=== PATIENT | female | born 1965 | race Caucasian/White ===

== ENCOUNTER 2018-03-16 12:57 | Emergency (ER) | payer OTHER ==
[2018-03-16] MEDS ORDERED: ASPIRIN 81 MG CHEWABLE TABLET ONE (13:50)
[2018-03-16] MEDS ORDERED: ONDANSETRON 4 MG/2 ML VIAL ONE (13:50)
[2018-03-16] MEDS ORDERED: NA CHLORIDE 0.9% 1,000 ML ONE (13:50)
[2018-03-16] MEDS ORDERED: FENTANYL CITR 100 MCG/2 ML ONE (13:50)
--- NOTE | 2018-03-16 13:50 | RAD REPORT ---
EXAM DESCRIPTION: RAD - Chest Single View - 03/16/2018 1:45 pm CLINICAL HISTORY: CHEST PAIN Chest pain. COMPARISON: Chest Single View dated 01/24/2017; Chest Single View dated 01/13/2017; Chest Single View dated 12/18/2016; Chest Single View dated 04/18/2016 FINDINGS: Portable technique limits examination quality. The lungs are emphysematous but grossly clear. The heart is normal in size. No displaced fractures. IMPRESSION: No acute intrathoracic process suspected. Mild COPD.
--- NOTE | 2018-03-16 13:50 | RAD REPORT ---
EXAM DESCRIPTION: RAD - Hand Right 3 View - 03/16/2018 1:45 pm CLINICAL HISTORY: PAIN COMPARISON: No comparisons FINDINGS: Mildly impacted fracture involves the right fourth metacarpal neck. No dislocation evident .
[2018-03-16 14:17] LABS: Absolute Lymphocytes (CBC) 2.4 K/uL (0.7-4.9); Absolute Monocytes 1.3 K/uL (0.1-1.3); Absolute Neutrophil 13.8 K/uL (1.8-8.0); Basophils % 0.5 % (0-1.3); Eosinophils % 0.1 % (0-4.4); Lymphocytes % 13.4 % (15.3-44.8); MPV 10.1 fL (7.6-11.3); Monocytes % 7.3 % (3.3-12.3); RBC Red Blood Cell Count 5.45 M/uL (3.86-4.86)
[2018-03-16 14:19] LABS: Protime INR 1.09
[2018-03-16 14:38] LABS: ALT/SGPT 26 U/L (12-78); AST/SGOT 28 U/L (15-37); Albumin 4.1 g/dL (3.4-5.0); Alkaline Phosphatase 79 U/L (45-117); BUN Blood Urea Nitrogen 21 mg/dL (7-18); Bicarbonate 28 mmol/L (21-32); Bilirubin Direct 0.4 mg/dL (0-0.2); Bilirubin Total 1.4 mg/dL (0.2-1.0); Glucose Level 88 mg/dL (74-106); Lipase 85 U/L (73-393); Magnesium 2.6 mg/dL (1.8-2.4); NT PRO-BNP 252 pg/mL (<125); Potassium 3.2 mmol/L (3.5-5.1); Protein, Total 8.7 g/dL (6.4-8.2); Sodium Level 132 mmol/L (136-145); Troponin (Emerg Dept Use Only) < 0.02 ng/mL (0.0-0.045)
--- NOTE | 2018-03-16 14:49 | EKG ---
Test Date: 2018-03-16 Test Time: 13:06:03 Clinical Quality Assurance Associate: TISHA/Tori MEASUREMENT RESULTS: Intervals: Rate: 89 NH: 126 QRSD: 82 QT: 356 QTc: 433 [place]: P: 69 NH: 126 QRS: 11 T: 31 INTERPRETIVE STATEMENTS: Normal sinus rhythm with sinus arrhythmia Normal ECG Compared to ECG 01/24/2017 13:07:35 No significant changes Electronically Signed On 03-16-18 14:48:17 RECORD PRESSMAN by Abrahan Brunson
--- NOTE | 2018-03-16 15:21 | RAD REPORT ---
EXAM DESCRIPTION: CT - Head C Spine Matt Cordero - 03/16/2018 2:59 pm CLINICAL HISTORY: Head and neck injury with chest and abdominal pain status post fall. Syncope. . He ad and neck pain . TECHNIQUE: Computed axial tomography of the head and cervical spine was obtained Computed axial tomography of the chest, abdomen and pelvis was obtained. 100 cc Isovue-300 was given intravenously coronal and sagittal reconstruction was performed. All CT scans are performed using dose optimization technique as appropriate and may include automated exposure control or mA/KV adjustment according to patient size. COMPARISON: 2017 FINDINGS: An intracranial bleed is not seen. The ventricles are normal in caliber. An extra-axial fl uid collection is not noted. Chronic sinusitis A cervical fracture is not seen. No dislocation is seen. Spondylosis involves the cervical spine A mediastinal hematoma is not noted. A pleural effusion is not present. A lung contusion is not seen. The liver, spleen, pancreas, adrenals, kidneys and bladder do not demonstrate a traumatic injury. Mild gallbladder distention IMPRESSION: 1. No acute intracranial abnormality is seen 2. A cervical fracture is not visualized. If the patient continues have symptoms to suggest intracran ial/spinal cord pathology then MRI would be recommended. 3. No traumatic injury involving the chest, abdomen or pelvis is seen.
[2018-03-16] MEDS ORDERED: MAGNE/ALUM HYDROXD 30 ML UCUP ONE (16:17)
[2018-03-16] MEDS ORDERED: LIDOCAINE VISCOUS 2% SOLN 15 ML UDC ONE (16:17)
--- NOTE | 2018-03-16 16:18 | EDPHYS ---
Physician Documentation [facility] Name: Teagan Bailey Age: 52 yrs Sex: Female : 1965 Arrival Date: 03/16/2018 Time: 13:04 Bed 13 Private MD: ED Physician Abhay Soto HPI: 03/16 13:28 This 52 yrs old Female presents to ER via EMS with complaints of Chest Pain. lillie 13:28 The patient or guardian reports chest pain that is located primarily in the anterior lillie chest wall, left. Onset: 2 day(s) ago. The pain does not radiate. Associated signs and symptoms: The patient has no apparent associated signs or symptoms. The chest pain is described as sharp. Severity of pain: At its worst the pain was moderate in the emergency department the pain is unchanged. 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 - Social history:: Smoking status: Patient uses tobacco products, smokes one pack cigarettes per day. Patient/guardian denies using alcohol, street drugs. - Ebola Screening: : No symptoms or risks identified at this time. ROS: 13:29 Constitutional: Negative for fever, chills, and weight loss, Eyes: Negative for injury, lillie pain, redness, and discharge, ENT: Negative for injury, pain, and discharge, Neck: Negative for injury, pain, and swelling, Respiratory: Negative for shortness of breath, cough, wheezing, and pleuritic chest pain, Abdomen/GI: Negative for abdominal pain, nausea, vomiting, diarrhea, and constipation, Back: Negative for injury and pain, : Negative for injury, bleeding, discharge, and swelling, Skin: Negative for injury, rash, and discoloration, Neuro: Negative for headache, weakness, numbness, tingling, and seizure, Psych: Negative for depression, anxiety, suicide ideation, homicidal ideation, and hallucinations, Allergy/Immunology: Negative for hives, rash, and allergies, Endocrine: Negative for neck swelling, polydipsia, polyuria, polyphagia, and marked weight changes, Hematologic/Lymphatic: Negative for swollen nodes, abnormal bleeding, and unusual bruising. 13:29 Cardiovascular: Positive for chest pain, of the left clavicle and anterior aspect of left upper chest. Exam: 13:29 Constitutional: This is a well developed, well nourished patient who is awake, alert, lillie and in no acute distress. Head/Face: Normocephalic, atraumatic. Eyes: Pupils equal round and reactive to light, extra-ocular motions intact. Lids and lashes normal. Conjunctiva and sclera are non-icteric and not injected. Cornea within normal limits. Periorbital areas with no swelling, redness, or edema. ENT: Nares patent. No nasal discharge, no septal abnormalities noted. Tympanic membranes are normal and external auditory canals are clear. Oropharynx with no redness, swelling, or masses, exudates, or evidence of obstruction, uvula midline. Mucous membranes moist. Neck: Trachea midline, no thyromegaly or masses palpated, and no cervical lymphadenopathy. Supple, full range of motion without nuchal rigidity, or vertebral point tenderness. No Meningismus. Cardiovascular: Regular rate and rhythm with a normal S1 and S2. No gallops, murmurs, or rubs. Normal PMI, no JVD. No pulse deficits. Respiratory: Lungs have equal breath sounds bilaterally, clear to auscultation and percussion. No rales, rhonchi or wheezes noted. No increased work of breathing, no retractions or nasal flaring. Abdomen/GI: Soft, non-tender, with normal bowel sounds. No distension or tympany. No guarding or rebound. No evidence of tenderness throughout. Back: No spinal tenderness. No costovertebral tenderness. Full range of motion. Skin: Warm, dry with normal turgor. Normal color with no rashes, no lesions, and no evidence of cellulitis. Neuro: Awake and alert, GCS 15, oriented to person, place, time, and situation. Cranial nerves II-XII grossly intact. Motor strength 5/5 in all extremities. Sensory grossly intact. Cerebellar exam normal. Normal gait. Psych: Awake, alert, with orientation to person, place and time. Behavior, mood, and affect are within normal limits. 13:29 Chest/axilla: Inspection: no acute changes, Palpation: tenderness, that is mild, that is moderate, of the left clavicle, anterior aspect of left upper chest and left breast. 13:29 Musculoskeletal/extremity: Extremities: noted in the right hand: contusion, decreased ROM, pain, swelling, tenderness, ROM: intact in all extremities, full active range of motion, full passive range of motion, Circulation is intact in all extremities. Sensation intact. Compartment Syndrome exam of affected extremity: is normal. Tendon exam: DVT Exam: No signs of deep vein thrombosis. no pain, no swelling, no tenderness, negative Homans' sign noted on exam, no appreciated bluish discoloration, no erythema, no increased warmth. Vital Signs: 13:09 BP 134 / 105; Pulse 101; Resp 22; Temp 98.2(O); Pulse Ox 98% on R/A; ph 14:00 BP 119 / 86; Pulse 80; Resp 18; Temp 97.9; Pulse Ox 98% on R/A; mh5 16:05 BP 108 / 79; Pulse 87; Resp 18; Temp 97.8(O); Pulse Ox 97% on R/A; mh5 MDM: 13:10 Patient medically screened. [facility] 13:33 Data reviewed: vital signs, nurses notes, lab test result(s), EKG, radiologic studies, [facility] CT scan, plain films. 03/16 13:11 Order name: Basic Metabolic Panel; Complete Time: 16:09 [facility] 03/16 13:11 Order name: CBC with Diff; Complete Time: 14:35 [facility] 03/16 13:11 Order name: LFT's; Complete Time: 16:09 [facility] 03/16 13:11 Order name: Magnesium; Complete Time: 16:09 [facility] 03/16 13:11 Order name: NT PRO-BNP; Complete Time: 16:09 [facility] 03/16 13:11 Order name: PT-INR; Complete Time: 14:35 [facility] 03/16 13:11 Order name: Troponin (emerg Dept Use Only); Complete Time: 16:09 [facility] 03/16 13:11 Order name: XRAY Chest (1 view); Complete Time: 14:35 [facility] 03/16 13:11 Order name: Lipase; Complete Time: 16:09 [facility] 03/16 13:28 Order name: CT Traumagram (Head C Spine CAP W Con); Complete Time: 16:09 [facility] 03/16 13:28 Order name: Urine Culture [facility] 03/16 13:32 Order name: Hand Right 3 View XRAY; Complete Time: 14:35 [facility] 03/16 16:20 Order name: Urine Dipstick--Ancillary (enter results) 03/16 13:11 Order name: EKG; Complete Time: 13:12 [facility] 03/16 13:11 Order name: Cardiac monitoring; Complete Time: 13:15 [facility] 03/16 13:11 Order name: EKG - Nurse/Tech; Complete Time: 13:15 [facility] 03/16 13:11 Order name: IV Saline Lock; Complete Time: 14:28 [facility] 03/16 13:11 Order name: Labs collected and sent; Complete Time: 14:28 [facility] 03/16 13:11 Order name: O2 Per Protocol; Complete Time: 13:15 [facility] 03/16 13:11 Order name: O2 Sat Monitoring; Complete Time: 13:16 [facility] 03/16 13:28 Order name: Urine Dipstick-Ancillary (obtain specimen); Complete Time: 16:15 [facility] 03/16 14:36 Order name: Ulnar Gutter splint: right; Complete Time: 15:46 [facility] 03/16 16:11 Order name: PO challenge: juice; Complete Time: 16:15 [facility] Administered Medications: 14:00 Drug: Aspirin 162 mg Route: PO; ph 16:27 Follow up: Response: No adverse reaction ph 14:05 Drug: NS 0.9% 1000 ml Route: IV; Rate: 125 ml/hr; Site: right antecubital; ph 16:26 Follow up: Response: No adverse reaction; IV Status: Completed infusion ph 14:05 Drug: fentaNYL (PF) 50 mcg Route: IVP; Site: right antecubital; ph 16:27 Follow up: Response: No adverse reaction; Pain is decreased ph 14:05 Drug: Zofran 4 mg Route: IVP; Site: right antecubital; ph 16:27 Follow up: Response: No adverse reaction; Nausea is decreased ph 16:15 Drug: GI Cocktail without - (Maalox Suspension 30 ml, Lidocaine Liquid 2 % 15 ph ml) Route: PO; 16:28 Follow up: Response: No adverse reaction; Pain is decreased ph 16:45 Drug: Potassium Effervescent Tablet 25 mEq Route: PO; ph 16:51 Follow up: Response: No adverse reaction ph 16:45 Drug: Augmentin 875 mg Route: PO; ph 16:51 Follow up: Response: No adverse reaction ph Disposition: 03/16/18 16:18 Discharged to Home. Impression: Vomiting, Other chest pain - wall, Nondisplaced fracture of neck of fourth metacarpal bone, right hand, Elevated white blood cell count, Acute pharyngitis, Tobacco abuse counseling, Tobacco use, Hypokalemia. - Condition is Fair. - Discharge Instructions: Potassium Content of Foods, Nausea and Vomiting, Adult, Pharyngitis, Steps to Quit Smoking, Smoking Hazards, Nausea and Vomiting, Adult, [id number], Pharyngitis, [id number]-dh-[id number], Steps to Quit Smoking, [id number], Aspirin and Your Heart, Sore Throat, [id number]-[id number], Hypokalemia. - Prescriptions for Augmentin 875- 125 mg Oral Tablet - take 1 tablet by ORAL route every 12 hours for 10 days; 20 tablet. Tylenol- Codeine #3 300-30 mg Oral Tablet - take 2 tablets by ORAL route every 6 hours As needed; 20 tablet. Zofran 4 mg Oral Tablet - take 1 tablet by ORAL route every 12 hours As needed; 14 tablet. - Medication Reconciliation Form, Thank You Letter, Antibiotic Education, Prescription Opioid Use form. - Follow up: Private Physician; When: 2 - 3 days; Reason: Recheck today's complaints, Continuance of care, Re-evaluation by your physician. Follow up: Eriberto Goff MD; When: 2 - 3 days; Reason: Recheck today's complaints, Continuance of care, Re-evaluation by your physician. - Problem is new. - Symptoms have improved. Signatures: Dispatcher [employer] EDAZ Abhay Soto MD MD cha Hall, Patricia RN RN ph Corrections: (The following items were deleted from the chart) 16:53 16:18 03/16/2018 16:18 Discharged to Home. Impression: Vomiting; Other chest pain - ph wall; Nondisplaced fracture of neck of fourth metacarpal bone, right hand; Elevated white blood cell count; Acute pharyngitis; Tobacco abuse counseling; Tobacco use; Hypokalemia. Condition is Fair. Forms are Medication Reconciliation Form, Thank You Letter, Antibiotic Education, Prescription Opioid Use. Follow up: Private Physician; When: 2 - 3 days; Reason: Recheck today's complaints, Continuance of care, Re-evaluation by your physician. Follow up: Eriberto Goff; When: 2 - 3 days; Reason: Recheck today's complaints, Continuance of care, Re-evaluation by your physician. Problem is new. Symptoms have improved. lillie
--- NOTE | 2018-03-16 16:18 | ER ---
Nurse's Notes [facility] Name: Teagan Bailey Age: 52 yrs Sex: Female : 1965 Arrival Date: 03/16/2018 Time: 13:04 Bed 13 Private MD: Diagnosis: Vomiting;Other chest pain-wall;Nondisplaced fracture of neck of fourth metacarpal bone, right hand;Elevated white blood cell count;Acute pharyngitis;Tobacco abuse counseling;Tobacco use;Hypokalemia Presentation: 03/16 13:05 Presenting complaint: EMS states: C/O left-sided chest pain x 45 min, describes as ph sharp and stabbing, pain is reproducible upon palpation and w/ movement of L arm, [address] depression, pt reports vomiting x 3 days, also reports having syncopal episode in shower yesterday. Transition of care: patient was not received from another setting of care. Onset of symptoms was March 16, 2018. Risk Assessment: Do you want to hurt yourself or someone else? Patient reports no desire to harm self or others. Initial Sepsis Screen: Does the patient meet any 2 criteria? No. Patient's initial sepsis screen is negative. Does the patient have a suspected source of infection? No. Patient's initial sepsis screen is negative. Care prior to arrival: IV initiated. 22 GA, in the right hand. 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 - Social history:: Smoking status: Patient uses tobacco products, smokes one pack cigarettes per day. Patient/guardian denies using alcohol, street drugs. - Ebola Screening: : No symptoms or risks identified at this time. Screenin:12 Abuse screen: Denies threats or abuse. Denies injuries from another. Nutritional ph screening: No deficits noted. Tuberculosis screening: No symptoms or risk factors identified. Fall Risk Fall in past 12 months (25 points). No secondary diagnosis (0 pts). IV access (20 points). Ambulatory Aid- None/Bed Rest/Nurse Assist (0 pts). Gait- Weak (10 pts.). Mental Status- Oriented to own ability (0 pts). Total Ron Fall Scale indicates High Risk Score (45 or more points). Fall prevention measures have been instituted. Side Rails Up X 2 Frequent Obs/Assessments Occuring As available patient and family educated on Fall Prevention Program and Strategies. Assessment: 13:10 General: Appears in no apparent distress. uncomfortable, Behavior is cooperative, ph anxious, Denies fever. Pain: Complains of pain in right hand and anterior aspect of left upper chest Pain does not radiate. Pain began 1 hour ago. Aggravated by increased activity, repositioning. Neuro: Level of Consciousness is awake, alert, obeys commands, Oriented to person, place, time, situation. Cardiovascular: Reports chest pain, nausea, syncope, vomiting, Denies shortness of breath, Capillary refill < 3 seconds in bilateral fingers Patient's skin is warm and dry. Rhythm is sinus rhythm. Respiratory: Airway is patent Respiratory effort is even, unlabored, Respiratory pattern is regular, symmetrical, Breath sounds are clear bilaterally. GI: Reports nausea, vomiting, Patient currently denies abdominal pain, diarrhea. EENT: Reports pain when swallowing. Derm: Skin is intact, is healthy with good turgor, Skin is. Musculoskeletal: Circulation, motion, and sensation intact. Range of motion: limited in all extremities, Swelling present in right hand. 14:30 Reassessment: Patient appears in no apparent distress at this time. Patient and/or ph family updated on plan of care and expected duration. Pain level reassessed. Patient is alert, oriented x 3, equal unlabored respirations, skin warm/dry/pink. 15:30 Reassessment: Patient appears in no apparent distress at this time. Patient and/or ph family updated on plan of care and expected duration. Pain level reassessed. Patient is alert, oriented x 3, equal unlabored respirations, skin warm/dry/pink. Pt c/o pain when swallowing, ERP notified, see MAR. Vital Signs: 13:09 BP 134 / 105; Pulse 101; Resp 22; Temp 98.2(O); Pulse Ox 98% on R/A; ph 14:00 BP 119 / 86; Pulse 80; Resp 18; Temp 97.9; Pulse Ox 98% on R/A; mh5 16:05 BP 108 / 79; Pulse 87; Resp 18; Temp 97.8(O); Pulse Ox 97% on R/A; mh5 ED Course: 13:04 Patient arrived in ED. ph 13:09 Triage completed. ph 13:10 Abhay Soto MD is Attending Physician. lillie 13:12 Arm band placed on. ph 13:15 Yeimi Chaparro, RN is Primary Nurse. ph 13:20 EKG done, by concrete engineering technician. reviewed by Abhay Soto MD. sm3 13:46 XRAY Chest (1 view) In Process Unspecified. EDMS 13:46 Hand Right 3 View XRAY In Process Unspecified. EDMS 14:01 Patient has correct armband on for positive identification. Placed in gown. Bed in low mh5 position. Call light in reach. Side rails up X 1. shelter monitor on. Pulse ox on. NIBP on. 14:10 Inserted saline lock: 20 gauge in right antecubital area, using aseptic technique. ph Blood collected. Patient maintains SpO2 saturation greater than 95% on room air. 14:31 Radiology exam delayed due to lab results not completed at this time. (BUN/Creatinine). vm2 14:[address] vm2 14:51 CT completed. Patient tolerated procedure well. Patient moved to CT via stretcher. Patient moved back from CT. 14:59 CT Traumagram (Head C Spine CAP W Con) In Process Unspecified. EDMS 15:46 Orthoglass splint: Ulnar gutter/Boxer splint applied on. mh5 15:47 Orthoglass splint: Ulnar gutter/Boxer splint applied on right forearm. mh5 16:16 Eriberto Goff MD is Referral Physician. lillie 16:26 No provider procedures requiring assistance completed. ph 16:52 IV discontinued, intact, bleeding controlled, No redness/swelling at site. Pressure ph dressing applied. Administered Medications: 14:00 Drug: Aspirin 162 mg Route: PO; ph 16:27 Follow up: Response: No adverse reaction ph 14:05 Drug: NS 0.9% 1000 ml Route: IV; Rate: 125 ml/hr; Site: right antecubital; ph 16:26 Follow up: Response: No adverse reaction; IV Status: Completed infusion ph 14:05 Drug: fentaNYL (PF) 50 mcg Route: IVP; Site: right antecubital; ph 16:27 Follow up: Response: No adverse reaction; Pain is decreased ph 14:05 Drug: Zofran 4 mg Route: IVP; Site: right antecubital; ph 16:27 Follow up: Response: No adverse reaction; Nausea is decreased ph 16:15 Drug: GI Cocktail without - (Maalox Suspension 30 ml, Lidocaine Liquid 2 % 15 ph ml) Route: PO; 16:28 Follow up: Response: No adverse reaction; Pain is decreased ph 16:45 Drug: Potassium Effervescent Tablet 25 mEq Route: PO; ph 16:51 Follow up: Response: No adverse reaction ph 16:45 Drug: Augmentin 875 mg Route: PO; ph 16:51 Follow up: Response: No adverse reaction ph Outcome: 16:18 Discharge ordered by . lillie 16:52 Discharged to home ambulatory, with significant other. ph 16:52 Condition: good 16:52 Discharge instructions given to patient, Instructed on discharge instructions, follow up and referral plans. medication usage, Demonstrated understanding of instructions, follow-up care, medications, splint care, Prescriptions given X 3. 16:53 Patient left the ED. ph Signatures: Dispatcher [employer] EDMS Abhay Soto MD MD cha Jones, Yeimi Holguin RN RN jose Pyle, Jennifer 5 Iris Castañeda 2 Luz Hernandez 3
[2018-03-16 16:25] LABS: Urine Blood 2+ (NEG); Urine Glucose NEGATIVE (NEG); Urine Protein 1+ (NEG); Urine Specific Gravity 1.005 (1.005-1.030)
[2018-03-16] MEDS ORDERED: AMOX/K CLAV 875 MG TAB ONE (16:47)
[2018-03-16] MEDS ORDERED: POTASSIUM CL SA 10 MEQ TAB PO ONE (16:47)
[2018-03-16 17:17] VITALS: BP 108/79; TEMP 97.8; O2SAT 97
== END 2018-03-16 16:53 | disposition home or self-care (01) ==
LOC: ER 12:57
DX: R11.10 Vomiting, unspecified (principal); S62.364A Nondisplaced fracture of neck of fourth metacarpal bone, right hand, initial encounter for closed fracture; D72.829 Elevated white blood cell count, unspecified; J02.9 Acute pharyngitis, unspecified; E87.6 Hypokalemia; Z71.6 Tobacco abuse counseling; Z72.0 Tobacco use; Z88.8 Allergy status to other drugs, medicaments and biological substances
CPT/HCPCS: 36415; 70450; 71045; 71260; 72125; 74177; 80048; 80076; 81003; 83690; 83735; 83880; 84484; 85025; 85610; 87086; 87088; 93005; 96361; 96374; 96375; 99285; J2405; J3010; J7030; Q9967

== ENCOUNTER 2018-06-29 10:21 | Emergency (ER) | payer SELFPAY ==
[2018-06-29 10:51] LABS: Absolute Lymphocytes (CBC) 1.7 K/uL (0.7-4.9); Absolute Monocytes 0.9 K/uL (0.1-1.3); Absolute Neutrophil 11.1 K/uL (1.8-8.0); Basophils % 0.3 % (0-1.3); Eosinophils % 0.4 % (0-4.4); Hematocrit 46.7 % (36.0-45.0); Lymphocytes % 12.3 % (15.3-44.8); Monocytes % 6.7 % (3.3-12.3)
[2018-06-29 11:11] LABS: ALT/SGPT 42 U/L (12-78); AST/SGOT 39 U/L (15-37); Albumin 4.1 g/dL (3.4-5.0); Alkaline Phosphatase 85 U/L (45-117); BUN Blood Urea Nitrogen 14 mg/dL (7-18); Bicarbonate 23 mmol/L (21-32); Bilirubin Direct 0.2 mg/dL (0-0.2); Bilirubin Total 0.9 mg/dL (0.2-1.0); Glucose Level 121 mg/dL (74-106); Magnesium 2.3 mg/dL (1.8-2.4); NT PRO-BNP 246 pg/mL (<125); Potassium 3.7 mmol/L (3.5-5.1); Protein, Total 8.8 g/dL (6.4-8.2); Sodium Level 138 mmol/L (136-145); Troponin (Emerg Dept Use Only) < 0.02 ng/mL (0.0-0.045)
--- NOTE | 2018-06-29 11:18 | RAD REPORT ---
EXAM DESCRIPTION: Gregory Single View06/29/2018 10:49 am CLINICAL HISTORY: Chest pain COMPARISON: February 2018 FINDINGS: The lungs are hyperaerated. The lungs appear clear of acute infiltrate. The heart is normal size IMPRESSION: No acute abnormalities displayed
[2018-06-29] MEDS ORDERED: DIAZEPAM 2 MG TABLET ONE (11:32)
--- NOTE | 2018-06-29 12:03 | EDPHYS ---
Physician Documentation [facility] Name: Teagan Bailey Age: 53 yrs Sex: Female : 1965 Arrival Date: 06/29/2018 Time: 10:21 Bed 4 Private MD: ED Physician Eron Gramajo HPI: 06/29 11:36 This 53 yrs old Female presents to ER via EMS with complaints of Anxiety, pm1 Chest Pain. 11:36 The patient or guardian reports chest pain that is located primarily in the mid-sternal pm1 area. Onset: this morning. The pain does not radiate. Associated signs and symptoms: The patient has no apparent associated signs or symptoms, Pertinent negatives: abdominal pain, cough, dizziness, headache, nausea, shortness of breath, vomiting. The chest pain is described as a pressure. Duration: The patient or guardian reports a single episode, that is still ongoing. Modifying factors: The symptoms are alleviated by nothing. the symptoms are aggravated by emotionally stressful situations. Feels like her anxiety attacks. The patient has not recently seen a physician. Patient with onset of chest pain after hearing the news over the phone that her sister had . 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 - Social history:: Smoking status: Patient uses tobacco products, unknown amount Patient uses alcohol. - Ebola Screening: : Patient negative for fever greater than or equal to 101.5 degrees Fahrenheit, and additional compatible Ebola Virus Disease symptoms Patient denies exposure to infectious person Patient denies travel to an Ebola-affected area in the 21 days before illness onset No symptoms or risks identified at this time. ROS: 11:36 Constitutional: Negative for fever, chills, and weight loss, Eyes: Negative for injury, pm1 pain, redness, and discharge, ENT: Negative for injury, pain, and discharge, Neck: Negative for injury, pain, and swelling. 11:36 Respiratory: Negative for shortness of breath, cough, wheezing, and pleuritic chest pain, Abdomen/GI: Negative for abdominal pain, nausea, vomiting, diarrhea, and constipation, Back: Negative for injury and pain, : Negative for injury, bleeding, discharge, and swelling, MS/Extremity: Negative for injury and deformity, Skin: Negative for injury, rash, and discoloration. 11:36 Neuro: Negative for headache, weakness, numbness, tingling, and seizure. 11:36 Cardiovascular: Positive for chest pain, Negative for edema, orthopnea, palpitations. 11:36 Psych: Positive for anxiety, depression, Negative for auditory hallucinations, visual hallucinations, suicide gesture, suicidal ideation. Exam: 11:36 Constitutional: This is a well developed, well nourished patient who is awake, alert, pm1 and in no acute distress. Head/Face: Normocephalic, atraumatic. Eyes: Pupils equal round and reactive to light, extra-ocular motions intact. Lids and lashes normal. Conjunctiva and sclera are non-icteric and not injected. Cornea within normal limits. Periorbital areas with no swelling, redness, or edema. ENT: Nares patent. No nasal discharge, no septal abnormalities noted. Tympanic membranes are normal and external auditory canals are clear. Oropharynx with no redness, swelling, or masses, exudates, or evidence of obstruction, uvula midline. Mucous membranes moist. Neck: Trachea midline, no thyromegaly or masses palpated, and no cervical lymphadenopathy. Supple, full range of motion without nuchal rigidity, or vertebral point tenderness. No Meningismus. Chest/axilla: Normal chest wall appearance and motion. Nontender with no deformity. No lesions are appreciated. Cardiovascular: Regular rate and rhythm with a normal S1 and S2. No gallops, murmurs, or rubs. Normal PMI, no JVD. No pulse deficits. Respiratory: Lungs have equal breath sounds bilaterally, clear to auscultation and percussion. No rales, rhonchi or wheezes noted. No increased work of breathing, no retractions or nasal flaring. Abdomen/GI: Soft, non-tender, with normal bowel sounds. No distension or tympany. No guarding or rebound. No evidence of tenderness throughout. Back: No spinal tenderness. No costovertebral tenderness. Full range of motion. Skin: Warm, dry with normal turgor. Normal color with no rashes, no lesions, and no evidence of cellulitis. MS/ Extremity: Pulses equal, no cyanosis. Neurovascular intact. Full, normal range of motion. 11:36 Neuro: Orientation: is normal, Motor: is normal, moves all fours, Sensation: is normal, no obvious gross deficits. 11:36 Psych: Behavior/mood is anxious, depressed, Affect is animated, Oriented to person, place, time, Patient has no thoughts/intents to harm self or others. Vital Signs: 10:26 BP 140 / 104; Pulse 89; Resp 14; Temp 98; Pulse Ox 98% ; Weight 72.57 kg; Height 5 ft. bp 7 in. (170.18 cm); 11:24 BP 150 / 114; Pulse 73; Resp 17; Pulse Ox 97% ; aj1 12:01 BP 152 / 89; Pulse 98; Resp 18 S; Pulse Ox 97% on R/A; Pain 0/10; iw 10:26 Body Mass Index 25.06 (72.57 kg, 170.18 cm) bp MDM: 10:37 Patient medically screened. pm1 11:36 Data reviewed: vital signs. Data interpreted: Pulse oximetry: on room air is 97 %. pm1 Interpretation: normal. Counseling: I had a detailed discussion with the patient and/or guardian regarding: the historical points, exam findings, and any diagnostic results supporting the discharge/admit diagnosis, lab results, radiology results, the need for outpatient follow up, to return to the emergency department if symptoms worsen or persist or if there are any questions or concerns that arise at home. 06/29 10:29 Order name: Basic Metabolic Panel; Complete Time: 11:15 bp 06/29 10:29 Order name: CBC with Diff; Complete Time: 10:58 bp 06/29 10:29 Order name: LFT's; Complete Time: 11:15 bp 06/29 10:29 Order name: Magnesium; Complete Time: 11:15 bp 06/29 10:29 Order name: NT PRO-BNP; Complete Time: 11:15 bp 06/29 10:29 Order name: PT-INR; Complete Time: 11:12 bp 06/29 10:29 Order name: Troponin (emerg Dept Use Only); Complete Time: 11:15 bp 06/29 10:29 Order name: XRAY Chest (1 view); Complete Time: 11:33 bp 06/29 10:29 Order name: EKG; Complete Time: 10:30 bp 06/29 10:29 Order name: Cardiac monitoring; Complete Time: 10:30 bp 06/29 10:29 Order name: EKG - Nurse/Tech; Complete Time: 10:36 bp 06/29 10:29 Order name: IV Saline Lock; Complete Time: 10:36 bp 06/29 10:29 Order name: Labs collected and sent; Complete Time: 10:36 bp 06/29 10:29 Order name: O2 Per Protocol; Complete Time: 10:30 bp 06/29 10:29 Order name: O2 Sat Monitoring; Complete Time: 10:30 bp Administered Medications: 11:20 Drug: Valium 2 mg Route: PO; aj1 12:01 Follow up: Response: No adverse reaction iw Disposition: 06/29/18 11:37 Discharged to Home. Impression: Acute stress reaction, Chest pain, unspecified. - Condition is Stable. - Discharge Instructions: Panic Attacks, Nonspecific Chest Pain, Stress and Stress Management, Generalized Anxiety Disorder. - Prescriptions for Valium 2 mg Oral Tablet - take 1 tablet by ORAL route every 8 hours As needed; 10 tablet. - Medication Reconciliation Form, Thank You Letter, Antibiotic Education, Prescription Opioid Use form. - Follow up: Emergency Department; When: As needed; Reason: Worsening of condition. Follow up: Private Physician; When: 2 - 3 days; Reason: Recheck today's complaints, Continuance of care, Re-evaluation by your physician. - Problem is new. - Symptoms have improved. Addendum: 07/02/2018 08:21 Co-signature as Attending Physician, Eron Gramajo MD I agree with the assessment and k dr plan of care. Signatures: Dispatcher [employer] EDHI Marjan Mcmanus RN RN aj1 Eron Gramajo MD MD kdr Crystal Easton RN RN iw Juan Pablo Tijerina, [employer] F[employer] pm1 Renato Goldstein RN RN bp Corrections: (The following items were deleted from the chart) 06/29 12:01 11:37 06/29/2018 11:37 Discharged to Home. Impression: Acute stress reactionChest pain, iw unspecified. Condition is Stable. Forms are Medication Reconciliation Form, Thank You Letter, Antibiotic Education, Prescription Opioid Use. Follow up: Emergency Department; When: As needed; Reason: Worsening of condition. Follow up: Private Physician; When: 2 - 3 days; Reason: Recheck today's complaints, Continuance of care, Re-evaluation by your physician. Problem is new. Symptoms have improved. pm1
--- NOTE | 2018-06-29 12:03 | ER ---
Nurse's Notes [facility] Name: Teagan Bailey Age: 53 yrs Sex: Female : 1965 Arrival Date: 06/29/2018 Time: 10:21 Bed 4 Private MD: Diagnosis: Chest pain, unspecified;Acute stress reaction Presentation: 06/29 10:22 Presenting complaint: EMS states: CHEST PAIN AND ANXIETY AFTER "BAD NEWS THIS MORNING". bp Transition of care: patient was not received from another setting of care. Onset of symptoms is unknown. Risk Assessment: Do you want to hurt yourself or someone else? Patient reports no desire to harm self or others. Initial Sepsis Screen: Does the patient meet any 2 criteria? No. Patient's initial sepsis screen is negative. Does the patient have a suspected source of infection? No. Patient's initial sepsis screen is negative. Care prior to arrival: None. 10:22 Method Of Arrival: EMS: [facility] bp 10:22 Acuity: DARRELL 2 bp Triage Assessment: 10:24 General: Appears distressed, comfortable, Behavior is appropriate for age, agitated, bp anxious. Pain: Complains of pain in chest. EENT: No deficits noted. Neuro: Level of Consciousness is awake, alert, obeys commands, Oriented to person, place, time, situation, Appropriate for age. Cardiovascular: Rhythm is sinus rhythm. Respiratory: Airway is patent Respiratory effort is even, unlabored, Respiratory pattern is regular, symmetrical. GI: No signs and/or symptoms were reported involving the gastrointestinal system. : No signs and/or symptoms were reported regarding the genitourinary system. Derm: No deficits noted. Musculoskeletal: Circulation, motion, and sensation intact. Range of motion: intact in all extremities. 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 - Social history:: Smoking status: Patient uses tobacco products, unknown amount Patient uses alcohol. - Ebola Screening: : Patient negative for fever greater than or equal to 101.5 degrees Fahrenheit, and additional compatible Ebola Virus Disease symptoms Patient denies exposure to infectious person Patient denies travel to an Ebola-affected area in the 21 days before illness onset No symptoms or risks identified at this time. Screenin:27 Abuse screen: Denies threats or abuse. Denies injuries from another. Nutritional bp screening: No deficits noted. Tuberculosis screening: No symptoms or risk factors identified. Fall Risk None identified. Assessment: 10:27 General: SEE TRIAGE NOTE. bp 10:32 Reassessment: PT REFUSING TO SPEAK WITH PROVIDER ABOUT CHIEF COMPLAINT. PT REFUSING bp MEDICATION FOR ANXIETY. PT REQUIRING FREQUENT REDIRECTION TO COOPERATE WITH PIV PLACEMENT. 10:35 Reassessment: Rebel and Susie at bedside for IV start, pt is anxious reports history of sg drug use and the needles make her feel like she is an addict again. pt educated on deep breathing and distraction techniques, pt tearful and speaking at a very loud volume. 10:53 Reassessment: pt on the phone speaking with someone, pt crying appears tearful at this sg time. 11:20 General: Appears uncomfortable, Behavior is cooperative, anxious. Pain: Complains of aj1 pain in chest Pain does not radiate. Pain began suddenly. Neuro: Level of Consciousness is awake, alert, obeys commands, Oriented to person, place, time, situation. Cardiovascular: Patient's skin is warm and dry. Cardiovascular: Rhythm is sinus rhythm. Respiratory: Airway is patent Respiratory effort is even, unlabored, Respiratory pattern is regular, symmetrical. GI: No signs and/or symptoms were reported involving the gastrointestinal system. : No signs and/or symptoms were reported regarding the genitourinary system. EENT: No signs and/or symptoms were reported regarding the EENT system. Derm: No signs and/or symptoms reported regarding the dermatologic system. Skin is pink, warm \\T\\ dry. normal. Musculoskeletal: No signs and/or symptoms reported regarding the musculoskeletal system. Circulation, motion, and sensation intact. 11:20 Reassessment: Patient reports having a lot of anxiety right now states "I feel like I'm aj1 falling apart" States she would like something for anxiety. Notified Shea Tijerina NP. 12:00 Reassessment: Patient appears in no apparent distress at this time. Patient and/or iw family updated on plan of care and expected duration. Pain level reassessed. Patient is alert, oriented x 3, equal unlabored respirations, skin warm/dry/pink. Vital Signs: 10:26 BP 140 / 104; Pulse 89; Resp 14; Temp 98; Pulse Ox 98% ; Weight 72.57 kg; Height 5 ft. bp 7 in. (170.18 cm); 11:24 BP 150 / 114; Pulse 73; Resp 17; Pulse Ox 97% ; aj1 12:01 BP 152 / 89; Pulse 98; Resp 18 S; Pulse Ox 97% on R/A; Pain 0/10; iw 10:26 Body Mass Index 25.06 (72.57 kg, 170.18 cm) bp ED Course: 10:21 Patient arrived in ED. bp 10:22 Florencio Jordan PA is PHCP. jmm 10:23 Eron Gramajo MD is Attending Physician. [facility] 10:23 PHCP role handed off by Florencio Jordan PA pm1 10:23 Juan Pablo Tijerina NP is PHCP. pm1 10:23 Triage completed. bp 10:23 Livan Bundy, RN is Primary Nurse. sg 10:27 Arm band placed on. bp 10:27 Patient has correct armband on for positive identification. Placed in gown. Bed in low bp position. Call light in reach. Side rails up X2. monitoring specialist on. Pulse ox on. NIBP on. 10:40 Initial lab(s) drawn, by me. Inserted saline lock: 22 gauge in left antecubital area, jb1 using aseptic technique. Blood collected. 10:50 XRAY Chest (1 view) In Process Unspecified. EDMS 10:50 EKG done, by industrial controls technician. reviewed by Juan Pablo Tijerina NP. dt2 11:38 Eron Gramajo MD is Attending Physician. pm1 12:01 No provider procedures requiring assistance completed. IV discontinued, intact, iw bleeding controlled, No redness/swelling at site. Pressure dressing applied. Patient maintains SpO2 saturation greater than 95% on room air. Administered Medications: 11:20 Drug: Valium 2 mg Route: PO; aj1 12:01 Follow up: Response: No adverse reaction iw Outcome: 11:37 Discharge ordered by . pm1 12:01 Discharged to home ambulatory, with family. iw 12:01 Condition: good 12:01 Discharge instructions given to patient, Instructed on discharge instructions, follow up and referral plans. medication usage, Demonstrated understanding of instructions, follow-up care, medications, Prescriptions given X 1. 12:01 Patient left the ED. iw Signatures: Dispatcher [employer] EDRebel Beavers jb1 Marjan Mcmanus, RN RN aj1 Livan Bundy RN RN sg Florencio Jordan PA PA Crystal Reyes RN RN iw Juan Pablo Tijerina, FITTER WELDER FITTER WELDER pm1 Renato Goldstein RN RN bp Mercedes Avalos dt2 Corrections: (The following items were deleted from the chart) 10:57 10:26 Pulse 89bpm; Resp 14bpm; Pulse Ox 98%; Temp 98F; 72.57 kg; Height 5 ft. 7 in.; bp BMI: 25.0; bp 11:33 11:24 BP 150 / 114; Pulse 73bpm; Resp 7bpm; Pulse Ox 97%; bp aj1
[2018-06-29 12:18] VITALS: BP 152/89; TEMP 98; O2SAT 97
--- NOTE | 2018-06-30 09:47 | EKG ---
Test Date: 2018-06-29 Test Time: 10:39:48 French Teacher: TISHA MEASUREMENT RESULTS: Intervals: Rate: 83 PA: 152 QRSD: 76 QT: 350 QTc: 411 [place]: P: 77 PA: 152 QRS: 94 T: 73 INTERPRETIVE STATEMENTS: Normal sinus rhythm Rightward axis Borderline ECG Compared to ECG 03/16/2018 13:06:03 Right-axis deviation now present Sinus arrhythmia no longer present Electronically Signed On 06-30-18 09:43:17 CDT by Carlo Oviedo
== END 2018-06-29 12:01 | disposition home or self-care (01) ==
LOC: ER 10:21
DX: F43.0 Acute stress reaction (principal); F41.9 Anxiety disorder, unspecified; Z72.0 Tobacco use; Z88.8 Allergy status to other drugs, medicaments and biological substances
CPT/HCPCS: 36415; 71045; 80048; 80076; 83735; 83880; 84484; 85025; 85610; 93005; 99285

== ENCOUNTER 2018-06-29 17:46 | Emergency (ER) | payer SELFPAY ==
--- NOTE | 2018-06-29 18:24 | ER ---
Nurse's Notes [facility] Name: Teagan Bailey Age: 53 yrs Sex: Female : 1965 Arrival Date: 06/29/2018 Time: 17:48 Bed Waiting Private MD: None, None Diagnosis: Presentation: 06/29 18:06 Presenting complaint: EMS states: pt was seen earlier today in this ER for anxiety and sg Chest pain as well as having shortness of breath. Called EMS for vomiting and feeling "dehydrated" from crying and vomiting today. Transition of care: patient was not received from another setting of care. Onset of symptoms was June 29, 2018. Risk Assessment: Do you want to hurt yourself or someone else? Patient reports no desire to harm self or others. Initial Sepsis Screen: Does the patient meet any 2 criteria? No. Patient's initial sepsis screen is negative. Does the patient have a suspected source of infection? No. Patient's initial sepsis screen is negative. Care prior to arrival: None. 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 - Social history:: Smoking status: Patient/guardian denies using tobacco. - Ebola Screening: : Patient negative for fever greater than or equal to 101.5 degrees Fahrenheit, and additional compatible Ebola Virus Disease symptoms Patient denies exposure to infectious person Patient denies travel to an Ebola-affected area in the 21 days before illness onset No symptoms or risks identified at this time. Assessment: 18:18 Reassessment: pt cursing and using profanity in the ER lobby with her 3 grandchildren sg and present, states " [facility], Im sicker than these people and i keep getting skipped. Im leaving". Vital Signs: 18:08 BP 156 / 92; Pulse 87; Resp 18; Temp 98.2; Pulse Ox 99% on R/A; Pain 6/10; sg 18:14 Weight 74.84 kg; Height 5 ft. 7 in. (170.18 cm); sg 18:14 Body Mass Index 25.84 (74.84 kg, 170.18 cm) ED Course: 17:48 Patient arrived in ED. mr 17:48 None, None is Private Physician. mr 18:07 Triage completed. sg 18:07 Arm band placed on. sg Administered Medications: No medications were administered Outcome: 18:23 Patient left the ED. sg Signatures: Livan Bundy RN RN Carolyn Santamaria mr
[2018-06-29 19:18] VITALS: BP 156/92; TEMP 98.2; O2SAT 99
== END 2018-06-29 18:23 | disposition left against medical advice (07) ==
LOC: ER 17:46
DX: Z53.21 Procedure and treatment not carried out due to patient leaving prior to being seen by health care provider (principal)
CPT/HCPCS: 99282

== ENCOUNTER 2018-08-06 17:33 | Emergency (ER) | payer OTHER ==
--- OUTSIDE RECORDS SUMMARY | 2018-08-06 17:36 | XMS REPORT ---
:1965 [facility] [place] [address] Care Team Providers Name Role Phone Unavailable Unavailable Unavailable Problems This patient has no known problems. Allergies, Adverse Reactions, Alerts This patient has no known allergies or adverse reactions. Medications This patient has no known medications.
[2018-08-06 18:23] LABS: Absolute Lymphocytes (CBC) 3.6 K/uL (0.7-4.9); Absolute Monocytes 1.2 K/uL (0.1-1.3); Absolute Neutrophil 7.8 K/uL (1.8-8.0); Eosinophils % 1.4 % (0-4.4); Hematocrit 45.4 % (36.0-45.0); Lymphocytes % 27.8 % (15.3-44.8); MPV 9.2 fL (7.6-11.3); Monocytes % 9.6 % (3.3-12.3); RBC Red Blood Cell Count 5.02 M/uL (3.86-4.86)
[2018-08-06 18:29] LABS: Potassium 3.2 mmol/L (3.5-5.1)
--- NOTE | 2018-08-06 18:32 | RAD REPORT ---
EXAM DESCRIPTION: RAD - Knee Left 3 View - 08/06/2018 6:23 pm CLINICAL HISTORY: Left knee pain status post injury FINDINGS: No fracture or dislocation is seen. Osteoporosis
[2018-08-06] MEDS ORDERED: NA CHLORIDE 0.9% 1,000 ML ONE (18:44)
[2018-08-06] MEDS ORDERED: LORazepam 2 MG/ML VIAL ONE (18:44)
[2018-08-06] MEDS ORDERED: KETOROLAC 30 MG/ML INJ ONE (18:44)
--- NOTE | 2018-08-06 19:03 | EDPHYS ---
Physician Documentation [facility] Name: Teagan Bailey Age: 53 yrs Sex: Female : 1965 Arrival Date: 08/06/2018 Time: 17:36 Bed 23 Private MD: ED Physician Radha Sales HPI: 08/06 19:00 This 53 yrs old Female presents to ER via Ambulatory with complaints of ma2 Probable Seizure, Knee Pain. 19:00 The patient presents after having a single isolated seizure. Seizure onset: just prior ma2 to arrival. Seizure Hx: Cause:. Current symptoms: confusion. The patient has experienced similar episodes in the past. 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 - Social history:: Smoking status: Patient uses tobacco products, smokes one-half pack cigarettes per day, Patient/guardian denies using alcohol, street drugs, The patient lives with family. - Ebola Screening: : Patient denies travel to an Ebola-affected area in the 21 days before illness onset. - Family history:: not pertinent. ROS: 19:00 Constitutional: Negative for fever, chills, and weight loss. ma2 19:00 MS/extremity: Positive for decreased range of motion, left knee, Negative for injury or acute deformity, erythema, swelling. 19:00 All other systems are negative. Exam: 19:00 Constitutional: This is a well developed, well nourished patient who is awake, alert, ma2 and in no acute distress. ENT: Nares patent. No nasal discharge, no septal abnormalities noted. Tympanic membranes are normal and external auditory canals are clear. Oropharynx with no redness, swelling, or masses, exudates, or evidence of obstruction, uvula midline. Mucous membranes moist. Neck: Trachea midline, no thyromegaly or masses palpated, and no cervical lymphadenopathy. Supple, full range of motion without nuchal rigidity, or vertebral point tenderness. No Meningismus. Chest/axilla: Normal chest wall appearance and motion. Nontender with no deformity. No lesions are appreciated. Cardiovascular: Regular rate and rhythm with a normal S1 and S2. No gallops, murmurs, or rubs. Normal PMI, no JVD. No pulse deficits. Respiratory: Lungs have equal breath sounds bilaterally, clear to auscultation and percussion. No rales, rhonchi or wheezes noted. No increased work of breathing, no retractions or nasal flaring. Abdomen/GI: Soft, non-tender, with normal bowel sounds. No distension or tympany. No guarding or rebound. No evidence of tenderness throughout. Back: No spinal tenderness. No costovertebral tenderness. Full range of motion. MS/ Extremity: Pulses equal, no cyanosis. Neurovascular intact. Full, normal range of motion. Neuro: Awake and alert, GCS 15, oriented to person, place, time, and situation. Cranial nerves II-XII grossly intact. Motor strength 5/5 in all extremities. Sensory grossly intact. Cerebellar exam normal. Normal gait. 19:00 Musculoskeletal/extremity: Extremities: grossly normal except: ttp to left knee, ROM: Circulation is intact in all extremities. Sensation intact. Vital Signs: 17:40 BP 157 / 107; Pulse 119; Resp 20; Temp 97.2; Pulse Ox 97% on R/A; Height 5 ft. 7 in. aj1 (170.18 cm) (R); Pain 10/10; 18:15 BP 119 / 85; Pulse 94; Resp 17 S; Temp 97.5; Pulse Ox 97% on R/A; ca1 18:45 BP 121 / 97; Pulse 103; Resp 17 S; Temp 97.5(O); Pulse Ox 97% on R/A; ca1 19:10 BP 116 / 79; Pulse 88; Resp 17 S; Pulse Ox 96% on R/A; ca1 Tristen Coma Score: 17:40 Eye Response: spontaneous(4). Verbal Response: oriented(5). Motor Response: obeys aj1 commands(6). Total: 15. MDM: 17:42 Patient medically screened. ma2 19:00 Differential diagnosis: trauma, knee pain seizure . Data reviewed: vital signs, nurses ma2 notes. Counseling: I had a detailed discussion with the patient and/or guardian regarding: the historical points, exam findings, and any diagnostic results supporting the discharge/admit diagnosis, the presence of at least one elevated blood pressure reading (>120/80) during this emergency department visit. Response to treatment: the patient's symptoms have markedly improved after treatment. 08/06 17:56 Order name: BMP; Complete Time: 18:59 ma2 08/06 17:56 Order name: CBC with Diff; Complete Time: 18:59 ma2 08/06 17:56 Order name: Knee Left 3 View XRAY; Complete Time: 18:59 ma2 08/06 17:56 Order name: Knee Immobilizer; Complete Time: 19:29 ma2 08/06 18:35 Order name: Saline Lock; Complete Time: 18:35 ca1 Administered Medications: 18:20 Drug: NS 0.9% 1000 ml Route: IV; Rate: 1 bolus; Site: right antecubital; ca1 19:29 Follow up: IV Status: Completed infusion; IV Intake: 1000ml rv 18:21 Drug: TORadol 30 mg Route: IVP; Site: right antecubital; ca1 19:29 Follow up: Response: No adverse reaction; Marked relief of symptoms; Pain is decreased rv 18:26 Drug: Ativan 2 mg Route: IVP; Site: right antecubital; ca1 19:29 Follow up: Response: No adverse reaction rv Disposition: 08/06/18 19:03 Discharged to Home. Impression: Abrasion, left knee. - Condition is Stable. - Discharge Instructions: Knee Pain, [id number]. - Prescriptions for Tylenol- Codeine #3 300-30 mg Oral Tablet - take 2 tablet by ORAL route every 6 hours As needed; 30 tablet. Valium 10 mg Oral Tablet - take 1 tablet by ORAL route every 8 hours As needed; 6 tablet. - Medication Reconciliation Form, Thank You Letter, Antibiotic Education, Prescription Opioid Use form. - Follow up: Private Physician; When: Tomorrow; Reason: Continuance of care. - Notes: no weight bearing on left knee untill you see bone doctor Signatures: Dispatcher [employer] Marjan Gonzales RN RN aj1 Radha Sales MD MD ma2 Zenon Bacon RN RN rv AcobNatalie RN RN ca1 Corrections: (The following items were deleted from the chart) 19:31 19:03 08/06/2018 19:03 Discharged to Home. Impression: Abrasion, left knee. Condition rv is Stable. Forms are Medication Reconciliation Form, Thank You Letter, Antibiotic Education, Prescription Opioid Use. Follow up: Private Physician; When: Tomorrow; Reason: Continuance of care. ma2
--- NOTE | 2018-08-06 19:03 | ER ---
Nurse's Notes [facility] Name: Teagan Bailey Age: 53 yrs Sex: Female : 1965 Arrival Date: 08/06/2018 Time: 17:36 Bed 23 Private MD: Diagnosis: Abrasion, left knee Presentation: 08/06 17:38 Presenting complaint: Patient states: "Okay I aint gone to the doctor to get my aj1 medication, that's my seizure medication. Today I had an ugly seizure and now my leg is killing me I feel something moving in it when I touch it" Patient reports pain to left knee. Patient reports that she usually takes Valium but she hasn't had it in 6 days. Transition of care: patient was not received from another setting of care. Onset of symptoms was August 06, 2018 at 09:30. Risk Assessment: Do you want to hurt yourself or someone else? Patient reports no desire to harm self or others. Initial Sepsis Screen: Does the patient meet any 2 criteria? No. Patient's initial sepsis screen is negative. Does the patient have a suspected source of infection? No. Patient's initial sepsis screen is negative. Care prior to arrival: None. 17:38 Method Of Arrival: Ambulatory aj1 17:38 Acuity: DARRELL 3 aj1 Triage Assessment: 17:40 General: Appears in no apparent distress. uncomfortable, Behavior is cooperative, aj1 agitated, anxious, restless. Pain: Complains of pain in left knee. Neuro: Level of Consciousness is awake, alert, obeys commands. Cardiovascular: Patient's skin is warm and dry. Respiratory: Airway is patent Respiratory effort is even, unlabored, Respiratory pattern is regular, symmetrical. 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 - Social history:: Smoking status: Patient uses tobacco products, smokes one-half pack cigarettes per day, Patient/guardian denies using alcohol, street drugs, The patient lives with family. - Ebola Screening: : Patient denies travel to an Ebola-affected area in the 21 days before illness onset. - Family history:: not pertinent. Screenin:50 Abuse screen: Denies threats or abuse. Denies injuries from another. Nutritional ca1 screening: No deficits noted. Tuberculosis screening: No symptoms or risk factors identified. Fall Risk None identified. Assessment: 17:50 General: Appears in no apparent distress. uncomfortable, Behavior is anxious, crying, ca1 Reports of an episode of seizure at 0930 today and hit her left knee. Pain: Complains of pain in left knee Pain does not radiate. Pain currently is 10 out of 10 on a pain scale. Pain began 10 hours ago. Neuro: Level of Consciousness is awake, alert, obeys commands, Oriented to person, place, time, situation, Seizure activity reported prior to arrival. Cardiovascular: Heart tones S1 S2 present Capillary refill < 3 seconds Patient's skin is warm and dry. Respiratory: Airway is patent Respiratory effort is even, unlabored, Respiratory pattern is regular, symmetrical, Breath sounds are clear bilaterally. GI: No deficits noted. No signs and/or symptoms were reported involving the gastrointestinal system. : No deficits noted. No signs and/or symptoms were reported regarding the genitourinary system. EENT: No deficits noted. No signs and/or symptoms were reported regarding the EENT system. Derm: Skin is intact, is healthy with good turgor, Skin is pink, warm \\T\\ dry. Musculoskeletal: Circulation, motion, and sensation intact. Capillary refill < 3 seconds, Range of motion: limited in left knee. 18:30 Reassessment: Patient appears in no apparent distress at this time. Patient and/or ca1 family updated on plan of care and expected duration. Pain level reassessed. Patient is alert, oriented x 3, equal unlabored respirations, skin warm/dry/pink. Pt calm at this time. Vital Signs: 17:40 BP 157 / 107; Pulse 119; Resp 20; Temp 97.2; Pulse Ox 97% on R/A; Height 5 ft. 7 in. aj1 (170.18 cm) (R); Pain 10/10; 18:15 BP 119 / 85; Pulse 94; Resp 17 S; Temp 97.5; Pulse Ox 97% on R/A; ca1 18:45 BP 121 / 97; Pulse 103; Resp 17 S; Temp 97.5(O); Pulse Ox 97% on R/A; ca1 19:10 BP 116 / 79; Pulse 88; Resp 17 S; Pulse Ox 96% on R/A; ca1 Panther Burn Coma Score: 17:40 Eye Response: spontaneous(4). Verbal Response: oriented(5). Motor Response: obeys aj1 commands(6). Total: 15. ED Course: 17:36 Patient arrived in ED. as 17:39 Triage completed. aj1 17:40 Arm band placed on Patient placed in an exam room. aj1 17:42 Radha Sales MD is Attending Physician. ma2 17:50 Patient has correct armband on for positive identification. Placed in gown. Bed in low ca1 position. Call light in reach. Side rails up X2. Seizure precautions initiated. Pulse ox on. NIBP on. Warm blanket given. 17:58 Natalie Santos, HARRY is Primary Nurse. ca1 18:00 No provider procedures requiring assistance completed. Inserted saline lock: 20 gauge ca1 in right antecubital area, using aseptic technique. Blood collected. 18:23 Knee Left 3 View XRAY In Process Unspecified. EDMS 19:31 IV discontinued, intact, bleeding controlled, No redness/swelling at site. Pressure rv dressing applied. Administered Medications: 18:20 Drug: NS 0.9% 1000 ml Route: IV; Rate: 1 bolus; Site: right antecubital; ca1 19:29 Follow up: IV Status: Completed infusion; IV Intake: 1000ml rv 18:21 Drug: TORadol 30 mg Route: IVP; Site: right antecubital; ca1 19:29 Follow up: Response: No adverse reaction; Marked relief of symptoms; Pain is decreased rv 18:26 Drug: Ativan 2 mg Route: IVP; Site: right antecubital; ca1 19:29 Follow up: Response: No adverse reaction rv Intake: 19:29 IV: 1000ml; Total: 1000ml. rv Outcome: 19:03 Discharge ordered by . ma2 19:30 Discharged to home KNEE IMMOBILIZER rv 19:30 Condition: good 19:30 Discharge instructions given to patient, Instructed on discharge instructions, follow up and referral plans. medication usage, KNEE IMMOBILIZER Demonstrated understanding of instructions, follow-up care, medications, KNEE IMMOBILIZER Prescriptions given X 2. 19:31 Patient left the ED. rv Signatures: Dispatcher [employer] EDMarjan Gutierrez RN RN aj1 Huma Pyle as Radha Sales MD MD ma2 Zenon Bacon RN RN rv Natalie Santos RN RN ca1 Corrections: (The following items were deleted from the chart) 17:40 17:38 Presenting complaint: Patient states: "Okay I aint gone to the doctor to get my aj1 medication, that's my seizure medication. Today I had an ugly seizure and now my leg is killing me I feel something moving in it when I touch it" Patient reports pain to left knee aj1
[2018-08-06 19:49] VITALS: TEMP 97.5
[2018-08-06 19:52] VITALS: BP 116/79; O2SAT 96
== END 2018-08-06 19:31 | disposition home or self-care (01) ==
LOC: ER 17:33
DX: R56.9 Unspecified convulsions (principal); S80.212A Abrasion, left knee, initial encounter; F41.9 Anxiety disorder, unspecified; J45.909 Unspecified asthma, uncomplicated; J44.9 Chronic obstructive pulmonary disease, unspecified; E11.9 Type 2 diabetes mellitus without complications; F17.210 Nicotine dependence, cigarettes, uncomplicated
CPT/HCPCS: 36415; 80048; 85025; 96361; 96374; 96375; 99284; J7030

== ENCOUNTER 2018-12-22 14:58 | Emergency (ER) | payer OTHER ==
[2018-12-22] MEDS ORDERED: LORazepam 2 MG/ML VIAL ONE (15:55)
[2018-12-22 16:04] LABS: Barbiturates NEGATIVE (NEGATIVE); Benzodiazepines NEGATIVE (NEGATIVE); Cocaine NEGATIVE (NEGATIVE); METHAMPHETAM NEGATIVE (NEGATIVE); Methadone NEGATIVE (NEGATIVE); Opiates NEGATIVE (NEGATIVE); Phencyclidine NEGATIVE (NEGATIVE); THC Cannibis NEGATIVE (NEGATIVE)
[2018-12-22 16:05] LABS: Absolute Lymphocytes (CBC) 1.8 K/uL (0.7-4.9); Basophils % 0.6 % (0-1.3); Lymphocytes % 20.4 % (15.3-44.8); RBC Red Blood Cell Count 4.81 M/uL (3.86-4.86)
[2018-12-22 16:09] LABS: Protime INR 1.05
[2018-12-22 16:26] LABS: ALT/SGPT 36 U/L (12-78); AST/SGOT 36 U/L (15-37); Albumin 4.2 g/dL (3.4-5.0); Alkaline Phosphatase 72 U/L (45-117); BUN Blood Urea Nitrogen 16 mg/dL (7-18); Bicarbonate 26 mmol/L (21-32); Bilirubin Direct 0.3 mg/dL (0-0.2); Bilirubin Total 0.9 mg/dL (0.2-1.0); Glucose Level 92 mg/dL (74-106); Potassium 3.2 mmol/L (3.5-5.1); Protein, Total 8.7 g/dL (6.4-8.2); Sodium Level 139 mmol/L (136-145)
[2018-12-22 17:18] LABS: Urine Blood 2+ (NEG); Urine Glucose NEGATIVE (NEG); Urine Protein 2+ (NEG); Urine Specific Gravity >1.030 (1.005-1.030); Urine pH 5.5 (5.0-7.0)
[2018-12-22] MEDS ORDERED: POTASSIUM 25 MEQ EFFERV TAB ONE (17:20)
--- NOTE | 2018-12-22 20:13 | ER ---
Nurse's Notes [facility] Name: Teagan Bailey Age: 53 yrs Sex: Female : 1965 Arrival Date: 12/22/2018 Time: 15:00 Bed 14 Private MD: Diagnosis: Other reactions to severe stress Presentation: 12/22 15:02 Presenting complaint: Patient states: She has been having a lot of anxiety because she aj1 is taking care of her grandchildren, who just went through a traumatic experience, and she takes Valium for her anxiety but it isn't working. Patient is crying and hyperventilating in triage. Denies suicidal or homicidal ideation. Transition of care: patient was not received from another setting of care. Onset of symptoms was December 22, 2018. Risk Assessment: Do you want to hurt yourself or someone else? Patient reports no desire to harm self or others. Initial Sepsis Screen: Does the patient meet any 2 criteria? No. Patient's initial sepsis screen is negative. Does the patient have a suspected source of infection? No. Patient's initial sepsis screen is negative. Care prior to arrival: None. 15:02 Method Of Arrival: Ambulatory aj 15:02 Acuity: DARRELL 3 aj1 Triage Assessment: 15:05 General: Appears unkempt, Behavior is anxious, restless. Pain: Denies pain. Neuro: aj1 Level of Consciousness is awake, alert, obeys commands. Cardiovascular: Patient's skin is warm and dry. Respiratory: Airway is patent Respiratory effort is even, unlabored, Respiratory pattern is regular, symmetrical, hyperventilation. 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 - Social history:: Smoking status: Patient uses tobacco products, smokes one-half pack cigarettes per day. - Ebola Screening: : Patient denies travel to an Ebola-affected area in the 21 days before illness onset. Screenin:10 Abuse screen: Denies threats or abuse. Nutritional screening: No deficits noted. rb1 Tuberculosis screening: No symptoms or risk factors identified. Fall Risk None identified. Assessment: 15:10 General: Appears distressed, Behavior is anxious, crying. Pain: Denies pain. Neuro: rb1 Level of Consciousness is awake, alert, obeys commands, Oriented to person, place, time, situation. Cardiovascular: Capillary refill < 3 seconds is brisk in bilateral fingers. Respiratory: Airway is patent Respiratory effort is even, unlabored, Respiratory pattern is regular, symmetrical. GI: No signs and/or symptoms were reported involving the gastrointestinal system. : No signs and/or symptoms were reported regarding the genitourinary system. Derm: Skin is pink, warm \T\ dry. Musculoskeletal: Range of motion: intact in all extremities. 16:00 Reassessment: Patient appears in no apparent distress at this time. No changes from rb1 previously documented assessment. 17:00 Reassessment: Patient appears in no apparent distress at this time. Pt. is resting with rb1 eyes closed, respirations even, unlabored. 17:51 Reassessment: Patient appears in no apparent distress at this time. Patient and/or rb1 family updated on plan of care and expected duration. Pain level reassessed. Patient is alert, oriented x 3, equal unlabored respirations, skin warm/dry/pink. Patient denies pain at this time. 18:22 Reassessment: Patient appears in no apparent distress at this time. No changes from rb1 previously documented assessment. 19:15 Reassessment: Patient appears in no apparent distress at this time. Patient and/or jb4 family updated on plan of care and expected duration. Pain level reassessed. Patient is alert, oriented x 3, equal unlabored respirations, skin warm/dry/pink. Provider notified that patient reports wanting to go home. Pt informed by provider that we are waiting for [facility] to evaluate the patient. 20:26 Reassessment: Patient appears in no apparent distress at this time. Patient and/or jb4 family updated on plan of care and expected duration. Pain level reassessed. Patient is alert, oriented x 3, equal unlabored respirations, skin warm/dry/pink. PT left ED prior to D/c. Psych: 15:10 Subjective: Patient's mood is sad, Delusions are denied, Hallucinations are denied rb1 Having thoughts of Denies suicidal or homicidal thoughts. Objective: Patient is cooperative, Speech is normal, Affect is appropriate. Suicide Risk Assessment: Sad Person Scale: Sex of patient: Female: Score 0 points. Age of patient: Score 0 point if patient falls outside of specified age parameters. Depression: Score 1 point if signs of depression are present. Previous Attempt: Score 0 point if patient has not previously attempted suicide. Substance Abuse: Score 0 point if patient does not abuse alcohol or drugs. Rational Thinking: Score 0 point if patient has rational thinking. Social Support: Score 0 if social support is present/available. Organized Plan: Score 0 if patient did not have an organized plan in place. Relationship: Score 0 point if patient has a spouse or domestic partner. Chronic Sickness: Score 1 point if patient has illness, chronic, debilitating, or severe. TOTAL POINTS: If total points are 0-2, proposed clinical action is to send home with follow-up. Pt denies substance abuse. Commitment: Pt. denies bening suicidal or homicidal. 15:10 Safety Checks: N/A. rb1 Vital Signs: 15:05 BP 162 / 101; Pulse 107; Resp 28; Temp 97.1; Pulse Ox 96% on R/A; Weight 72.57 kg (R); aj1 Height 5 ft. 7 in. (170.18 cm) (R); 16:00 BP 141 / 98; Pulse 105; Resp 19; Pulse Ox 99% on R/A; Pain 0/10; rb1 17:00 BP 99 / 64; Pulse 64; Resp 16; Pulse Ox 96% on R/A; Pain 0/10; rb1 17:52 BP 125 / 80; Pulse 96; Resp 17; Pulse Ox 99% on R/A; Pain 0/10; rb1 18:21 BP 141 / 95; Pulse 85; Resp 16; Pulse Ox 97% on R/A; rb1 20:06 BP 113 / 93; Pulse 86; Resp 16; Pulse Ox 98% on R/A; jb4 15:05 Body Mass Index 25.06 (72.57 kg, 170.18 cm) aj1 ED Course: 15:00 Patient arrived in ED. as 15:04 Triage completed. aj1 15:05 Arm band placed on Patient placed in an exam room. aj1 15:10 Patient has correct armband on for positive identification. Bed in low position. Call rb1 light in reach. Side rails up X 1. Pulse ox on. NIBP on. Warm blanket given. 15:11 Abhay Torres PA is PHCP. cp 15:11 Jori Desai MD is Attending Physician. cp 15:28 Hannah Burrell, RN is Primary Nurse. rb1 15:35 Inserted saline lock: 22 gauge in right antecubital area, using aseptic technique. rb1 Blood collected. 17:05 called the [facility] to page out the screener dispute resolution analyst to come evaluate the gm patient. 17:[address] [facility] called and said it would be a couple of hours before she could gm get here/ she is currently in route to [place] for another call. 20:27 No provider procedures requiring assistance completed. IV discontinued, intact, jb4 bleeding controlled, No redness/swelling at site. Pressure dressing applied. Administered Medications: 16:00 Drug: Ativan 0.5 mg Route: IVP; Site: right antecubital; rb1 16:15 Follow up: Response: No adverse reaction; Anxiety decreased rb1 17:40 Drug: Potassium Effervescent Tablet 50 mEq Route: PO; rb1 18:05 Follow up: Response: No adverse reaction rb1 Outcome: 20:12 Discharge ordered by MD. cp 20:27 Discharged to home ambulatory. jb4 20:27 Condition: stable 20:29 Patient left the ED. jb4 Signatures: Marjan Mcmanus, RN RN aj1 Huma Pyle as Abhay Torres PA PA cp Hannah Burrell, RN RN rb1 Donnell Puckett RN RN jb4 Chante Malcolm Corrections: (The following items were deleted from the chart) 20:28 20:06 BP 113 / 93; Pulse 16bpm; Resp 86bpm; Pulse Ox 98% RA; jb4 jb4
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
[2018-12-22 20:48] VITALS: TEMP 97.1
[2018-12-22 20:55] VITALS: BP 113/93; O2SAT 98
--- NOTE | 2018-12-23 06:16 | EKG ---
Test Date: 2018-12-22 Test Time: 15:29:55 Senior Property Accountant: SHAYYT MEASUREMENT RESULTS: Intervals: Rate: 73 VT: 132 QRSD: 82 QT: 384 QTc: 423 [place]: P: 74 VT: 132 QRS: 42 T: 38 INTERPRETIVE STATEMENTS: Normal sinus rhythm Normal ECG Compared to ECG 06/29/2018 10:39:48 Right-axis deviation no longer present Electronically Signed On 12-23-18 06:15:12 CDT by Abrahan Brunson
== END 2018-12-22 20:29 | disposition home or self-care (01) ==
LOC: ER 14:58
DX: F43.9 Reaction to severe stress, unspecified (principal); Z88.6 Allergy status to analgesic agent
CPT/HCPCS: 36415; 80048; 80076; 80307; 80320; 80329; 81003; 81025; 85025; 85610; 85730; 93005; 96374; 99284

== ENCOUNTER 2019-02-27 08:32 | Emergency (ER) | payer SELFPAY ==
--- OUTSIDE RECORDS SUMMARY | 2019-02-27 08:34 | XMS REPORT ---
:1965 [facility] Address [facility] [place] [address] Care Team Providers Name Role Phone Unavailable Unavailable Unavailable Problems This patient has no known problems. Allergies, Adverse Reactions, Alerts This patient has no known allergies or adverse reactions. Medications This patient has no known medications.
--- NOTE | 2019-02-27 10:06 | EDPHYS ---
Physician Documentation [facility] Name: Teagan Bailey Age: 53 yrs Sex: Female : 1965 Arrival Date: 02/27/2019 Time: 08:34 Bed 16 Private MD: None, None ED Physician Eron Gramajo Historical: - Allergies: 02/27 09:05 Dilaudid; iw - PMHx: 09:05 Anxiety; Asthma; Bronchitis; Diabetes - NIDDM; Seizures; skin ca; COPD; iw - PSHx: 09:05 Tubal ligation; iw - Immunization history:: Adult Immunizations not up to date. - Social history:: Smoking status: Patient uses tobacco products, smokes one-half pack cigarettes per day. - Ebola Screening: : Patient negative for fever greater than or equal to 101.5 degrees Fahrenheit, and additional compatible Ebola Virus Disease symptoms Patient denies exposure to infectious person Patient denies travel to an Ebola-affected area in the 21 days before illness onset No symptoms or risks identified at this time. Vital Signs: 09:05 BP 117 / 79; Pulse 97; Resp 16; Temp 97.3; Pulse Ox 96% on R/A; Weight 72.57 kg; iw MDM: 09:33 Patient medically screened. jr8 10:05 ED course: Patient came screaming to physicians desk that she has not received a jr8 blanket and wants to be discharged. We told her that we would absolutely give her a blanket but that we want to evaluate her for her presenting complaint. Patient did not want to stay and just left. Patient had some wait time in lobby due to critical patient but was brought back to exam room afterwards. Had only been in exam room for short period of time . Administered Medications: No medications were administered Disposition: 02/28 07:21 Co-signature as Attending Physician, Eron Gramajo MD I agree with the assessment and kdr plan of care. Disposition: 02/27/19 10:05 Patient left the facility before being seen by provider. - Patient left due to (see nurse's notes). Signatures: Livan Bundy RN RN Eron Gramajo MD MD [facility] Crystal Easton RN RN Alvaro Munson PA PA jr8 Corrections: (The following items were deleted from the chart) 02/27 10:10 10:05 02/27/2019 10:05 Patient left the facility before being seen by provider. Reason sg stated they are leaving due to (see nurse's notes). jr8
--- NOTE | 2019-02-27 10:06 | ER ---
Nurse's Notes [facility] Name: Teagan Bailey Age: 53 yrs Sex: Female : 1965 Arrival Date: 02/27/2019 Time: 08:34 Bed 16 Private MD: None, None Diagnosis: Presentation: 02/27 09:04 Presenting complaint: Patient states: jordan ear pain, feels clogged, sinus congestion, iw runny nose, diarrhea vomiting. Transition of care: patient was not received from another setting of care. Onset of symptoms was February 17, 2019. Risk Assessment: Do you want to hurt yourself or someone else? Patient reports no desire to harm self or others. Initial Sepsis Screen: Does the patient meet any 2 criteria? No. Patient's initial sepsis screen is negative. Does the patient have a suspected source of infection? No. Patient's initial sepsis screen is negative. Care prior to arrival: None. 09:04 Method Of Arrival: Ambulatory iw 09:04 Acuity: DARRELL 3 iw Historical: - Allergies: 09:05 Dilaudid; iw - PMHx: 09:05 Anxiety; Asthma; Bronchitis; Diabetes - NIDDM; Seizures; skin ca; COPD; iw - PSHx: 09:05 Tubal ligation; iw - Immunization history:: Adult Immunizations not up to date. - Social history:: Smoking status: Patient uses tobacco products, smokes one-half pack cigarettes per day. - Ebola Screening: : Patient negative for fever greater than or equal to 101.5 degrees Fahrenheit, and additional compatible Ebola Virus Disease symptoms Patient denies exposure to infectious person Patient denies travel to an Ebola-affected area in the 21 days before illness onset No symptoms or risks identified at this time. Screenin:32 Abuse screen: Denies threats or abuse. Denies injuries from another. Nutritional sg screening: No deficits noted. Tuberculosis screening: No symptoms or risk factors identified. Never had TB. Fall Risk None identified. Assessment: 09:30 General: Appears in no apparent distress. unkempt, well developed, well nourished, sg Behavior is agitated, restless. Pain: Complains of pain in bilateral ears, body aches Quality of pain is described as aching. Neuro: Level of Consciousness is awake, alert, obeys commands, Oriented to person, place, time, Speech is normal, Facial symmetry appears normal. Cardiovascular: Patient's skin is warm and dry. Chest pain is denied. Respiratory: Airway is patent Respiratory effort is even, unlabored, Respiratory pattern is regular, symmetrical. GI: Abdomen is round non-distended, Reports tolerance of fluids, tolerance of food. : No signs and/or symptoms were reported regarding the genitourinary system. EENT: Reports pain in bilateral ears, sore throat. Derm: Skin is pink, warm \\T\\ dry. Musculoskeletal: Circulation, motion, and sensation intact. Range of motion: intact in all extremities. 09:55 Reassessment: Patient appears in no apparent distress at this time. pt at nurses sg station, pt states " I asked for a blanket an hour ago, Im not going to sit in this cold ass room and wait without a blanket. Give me my damn discharge papers, Im going to [place]." Attempt to help patient, attempt to explain that no orders have been given at this time, offered warm blanket, Pt left ER. Vital Signs: 09:05 BP 117 / 79; Pulse 97; Resp 16; Temp 97.3; Pulse Ox 96% on R/A; Weight 72.57 kg; iw ED Course: 08:34 Patient arrived in ED. mr 08:34 None, None is Private Physician. mr 09:05 Triage completed. iw 09:24 Alvaro Munson PA is PHCP. jr8 09:24 Eron Gramajo MD is Attending Physician. jr8 09:30 Arm band placed on. sg 09:33 Patient has correct armband on for positive identification. Bed in low position. Call sg light in reach. 09:46 Livan Bundy, RN is Primary Nurse. sg 10:10 No provider procedures requiring assistance completed. IV discontinued. sg Administered Medications: No medications were administered Outcome: 10:00 Eloped from patient exam room, before seeing physician sg 10:00 Condition: good 10:10 Patient left the ED. sg Signatures: Livan Bundy, RN Carolyn Marina Crystal Easton RN RN Alvaro Munson PA PA jr8
[2019-02-27 10:15] VITALS: BP 117/79; TEMP 97.3; O2SAT 96
== END 2019-02-27 10:10 | disposition left against medical advice (07) ==
LOC: ER 08:32
DX: Z53.21 Procedure and treatment not carried out due to patient leaving prior to being seen by health care provider (principal)
CPT/HCPCS: 99281

== ENCOUNTER 2019-12-14 08:42 | Emergency (ER) | payer SELFPAY, OTHER ==
--- OUTSIDE RECORDS SUMMARY | 2019-12-14 08:45 | XMS REPORT | Continuity of Care Document ---
:1965 Author Organization [facility] t Address [address] [place] [address] Care Team Providers Name Role Phone Ebenezer North DO Attending Clinician Doctor Unassigned, [place] Attending Clinician Unavailable Problems This patient has no known problems. Allergies, Adverse Reactions, Alerts This patient has no known allergies or adverse reactions. Medications This patient has no known medications. Procedures This patient has no known procedures. Encounters Start End Encounter Admission Attending Care Care Encounter Source Date/Time Date/Time Type Type Clinicians Facility Department ID 2019-08-06 2019-08-06 Emergency [facility] [id number] 09:32:38 10:13:00 Ebenezer Vergara [id number] [place] [id number] [place] [id number] 2019-08-06 2019-08-06 Orders Doctor BELL [id number] 00:00:00 00:00:00 Only UnassLETICIA muhammad [id number] [place] [facility] [id number] Results This patient has no known results.
[2019-12-14 10:07] LABS: Absolute Lymphocytes (CBC) 2.2 K/uL (0.7-4.9); Basophils % 0.9 % (0-1.3); Hematocrit 42.6 % (36.0-45.0); Lymphocytes % 20.2 % (15.3-44.8); MPV 9.8 fL (7.6-11.3); Protime INR 0.98; RBC Red Blood Cell Count 4.65 M/uL (3.86-4.86)
--- NOTE | 2019-12-14 10:12 | RAD REPORT ---
EXAM DESCRIPTION: Gregory Single View12/14/2019 9:40 am CLINICAL HISTORY: cough COMPARISON: 2018 FINDINGS: The lungs appear clear of acute infiltrate. The heart is normal size IMPRESSION: No acute abnormalities displayed
[2019-12-14 10:24] LABS: ALT/SGPT 25 U/L (12-78); AST/SGOT 27 U/L (15-37); Albumin 3.5 g/dL (3.4-5.0); Alkaline Phosphatase 85 U/L (45-117); BUN Blood Urea Nitrogen 9 mg/dL (7-18); Bicarbonate 29 mmol/L (21-32); Bilirubin Direct 0.2 mg/dL (0-0.2); Bilirubin Total 0.6 mg/dL (0.2-1.0); Glucose Level 84 mg/dL (74-106); Magnesium 2.5 mg/dL (1.8-2.4); NT PRO-BNP 139 pg/mL (<125); Potassium 3.6 mmol/L (3.5-5.1); Protein, Total 8.3 g/dL (6.4-8.2); Sodium Level 139 mmol/L (136-145); Troponin (Emerg Dept Use Only) < 0.02 ng/mL (0.0-0.045)
[2019-12-14] MEDS ORDERED: NA CHLORIDE 0.9% 500 ML ONE (10:25)
[2019-12-14] MEDS ORDERED: ALBUTEROL 2.5 MG/3 ML NEB SOL ONE (10:25)
[2019-12-14] MEDS ORDERED: IPRATROPIUM BROM 0.5MG/2.5ML ONE (10:25)
[2019-12-14] MEDS ORDERED: predniSONE 20 MG TAB ONE (10:25)
[2019-12-14] MEDS ORDERED: NA CHLORIDE 0.9% 100 ML IV ONE (11:23)
[2019-12-14] MEDS ORDERED: CEFTRIAXONE/SWI 1gm 1 GM/10 ML SYR ONE (11:23)
[2019-12-14] MEDS ORDERED: DIAZEPAM 2 MG TABLET ONE (11:23)
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
--- NOTE | 2019-12-14 12:54 | EDPHYS ---
Physician Documentation [facility] Name: Teagan Bailey Age: 54 yrs Sex: Female : 1965 Arrival Date: 12/14/2019 Time: 08:46 Bed 13 Private MD: ED Physician Eron Gramajo HPI: 12/13 09:26 This 54 yrs old Female presents to ER via Ambulatory with complaints of pm1 Breathing Difficulty, Diarrhea. 09:26 The patient has shortness of breath and the patient has a history of asthma, COPD, pm1 Anxiety. 09:26 Onset: The symptoms/episode began/occurred 3 day(s) ago. Duration: The symptoms are pm1 continuous. The patient's shortness of breath is aggravated by having to bring her son money in [place], ran out of anxiety medications. Associated signs and symptoms: Pertinent positives: Loss of sense of taste, Pertinent negatives: chest pain, non-productive cough, productive cough, fever, nausea, vomiting. Severity of symptoms: in the emergency department the symptoms are worse. The patient has experienced similar episodes in the past, several times. Patient is here with her granddaughter that has flu-like symptoms. Historical: - Allergies: 09:06 Dilaudid; bp - Home Meds: 09:06 None [Active]; bp - PMHx: 09:06 Asthma; Anxiety; Bronchitis; COPD; Diabetes - NIDDM; Seizures; skin ca; bp - Immunization history:: Adult Immunizations unknown. - Social history:: Smoking status: Patient reports the use of cigarette tobacco products, unknown amount. ROS: 09:26 Back: Negative for injury and pain, : Negative for injury, bleeding, discharge, and pm1 swelling, MS/Extremity: Negative for injury and deformity, Skin: Negative for injury, rash, and discoloration, Neuro: Negative for headache, weakness, numbness, tingling, and seizure. 09:26 Constitutional: Negative for fever, chills, and weight loss, Eyes: Negative for injury, pain, redness, and discharge, Neck: Negative for injury, pain, and swelling, Cardiovascular: Negative for chest pain, palpitations, and edema. 09:26 Respiratory: Positive for cough, shortness of breath. 09:26 Abdomen/GI: Positive for diarrhea, Negative for abdominal pain, nausea and vomiting. 09:26 ENT: Positive for drainage from ear(s), ear pain, Negative for sore throat. pm1 Exam: 09:26 Constitutional: This is a well developed, well nourished patient who is awake, alert, pm1 and in no acute distress. Head/Face: Normocephalic, atraumatic. Neck: Trachea midline, no thyromegaly or masses palpated, and no cervical lymphadenopathy. Supple, full range of motion without nuchal rigidity, or vertebral point tenderness. No Meningismus. 09:26 Abdomen/GI: Soft, non-tender, with normal bowel sounds. No distension or tympany. No guarding or rebound. No evidence of tenderness throughout. Back: No spinal tenderness. No costovertebral tenderness. Full range of motion. Skin: Warm, dry with normal turgor. Normal color with no rashes, no lesions, and no evidence of cellulitis. MS/ Extremity: Pulses equal, no cyanosis. Neurovascular intact. Full, normal range of motion. 09:26 ENT: External ear(s): are unremarkable, Ear canal(s): are normal, TM's: bulging, on the right, erythema, Examination of the other ear shows no obvious abnormality. 09:26 Cardiovascular: Exam negative for acute changes, Rate: normal, Rhythm: regular, Pulses: no pulse deficits are appreciated. 09:26 Respiratory: Exam negative for acute changes, respiratory distress, shortness of breath, wheezing, Breath sounds: are clear throughout. Vital Signs: 08:50 BP 107 / 86; Pulse 100; Resp 20; Temp 97.3; Pulse Ox 98% ; bp 10:00 BP 115 / 81; Pulse 81; Resp 16; Pulse Ox 99% ; bp 11:00 BP 111 / 54; Pulse 89; Resp 16; Pulse Ox 96% ; bp 13:01 BP 96 / 61; Pulse 99; Resp 16; Temp 97.5; Pulse Ox 97% ; bp MDM: 09:08 Patient medically screened. pm1 12:52 Data reviewed: vital signs. Data interpreted: Pulse oximetry: on room air is 96 %. pm1 Interpretation: normal. Counseling: I had a detailed discussion with the patient and/or guardian regarding: the historical points, exam findings, and any diagnostic results supporting the discharge/admit diagnosis, lab results, radiology results, the need for outpatient follow up, to return to the emergency department if symptoms worsen or persist or if there are any questions or concerns that arise at home. 12/13 09:15 Order name: NT PRO-BNP; Complete Time: 10:32 pm12/13 09:15 Order name: Basic Metabolic Panel; Complete Time: 10:32 pm12/13 09:15 Order name: CBC with Diff; Complete Time: 10:32 pm12/13 09:15 Order name: LFT's; Complete Time: 10:32 pm12/13 09:15 Order name: Magnesium; Complete Time: 10:32 pm12/13 09:15 Order name: PT-INR; Complete Time: 10:32 pm12/13 09:15 Order name: Troponin (emerg Dept Use Only); Complete Time: 10:32 pm12/13 09:15 Order name: XRAY Chest (1 view); Complete Time: 10:32 pm12/13 09:16 Order name: COVID-19 pm1 12/13 09:16 Order name: Flu; Complete Time: 11:00 pm12/13 09:16 Order name: Strep; Complete Time: 11:00 pm12/13 10:55 Order name: Throat Culture EDMS 12/13 09:15 Order name: EKG; Complete Time: 09:15 pm12/13 09:15 Order name: Cardiac monitoring; Complete Time: 10:23 pm12/13 09:15 Order name: EKG - Nurse/Tech; Complete Time: 10:49 pm12/13 09:15 Order name: IV Saline Lock; Complete Time: 09:44 pm12/13 09:15 Order name: Labs collected and sent; Complete Time: 09:44 pm12/13 09:15 Order name: O2 Per Protocol; Complete Time: 09:44 pm12/13 09:15 Order name: O2 Sat Monitoring; Complete Time: 09:44 pm1 Administered Medications: 09:45 Drug: Albuterol - atroVENT (3:1) (2.5 mg - 0.5 mg) 3 ml Route: Nebulizer; bp 13:11 Follow up: Response: No adverse reaction bp 09:45 Drug: predniSONE 60 mg Route: PO; bp 13:11 Follow up: Response: No adverse reaction bp 10:00 Drug: NS 0.9% 500 ml Route: IV; Rate: bolus; Site: right antecubital; bp 13:10 Follow up: IV Status: Completed infusion; IV Intake: 500ml bp 11:10 Drug: Valium 2 mg Route: PO; bp 13:11 Follow up: Response: Anxiety decreased bp 11:10 Drug: Rocephin 1 grams Route: IV; Rate: calculated rate; Site: right antecubital; bp 13:10 Follow up: IV Status: Completed infusion; IV Intake: 100ml bp Disposition: 12/14 08:44 Co-signature as Attending Physician, Eron Gramajo MD I agree with the assessment and kdr plan of care. Disposition: 12/14/19 12:53 Discharged to Home. Impression: Otitis media, unspecified, right ear, Anxiety disorder, unspecified, Chronic obstructive pulmonary disease, unspecified. - Condition is Stable. - Discharge Instructions: Chronic Obstructive Pulmonary Disease, Otitis Media, Adult, Generalized Anxiety Disorder, COVID-19. - Prescriptions for Prednisone 20 mg Oral Tablet - take 1 tablet by ORAL route every 12 hours for 7 days; 14 tablet. Valium 2 mg Oral Tablet - take 1 tablet by ORAL route every 8 hours As needed; 10 tablet. Albuterol Sulfate 90 mcg/actuation - inhale 1-2 puff by INHALATION route every 4-6 hours; 1 Inhaler. Zithromax Z- Ulysses 250 mg Oral Tablet - take 1 tablet by ORAL route as directed for 5 days Day 1 - take two (2) tablets one time. Day 2, 3, 4 , 5 take one (1) tablet once daily.; 6 tablet. - Medication Reconciliation Form, Thank You Letter, Antibiotic Education, Prescription Opioid Use form. - Follow up: Emergency Department; When: As needed; Reason: Worsening of condition. Follow up: Private Physician; When: 2 - 3 days; Reason: Recheck today's complaints, Continuance of care, Re-evaluation by your physician. - Problem is new. - Symptoms have improved. Signatures: Dispatcher [employer] EDMS Eron Gramajo MD MD kdr Juan Pablo Tijerina, [facility] pm1 Renato Goldstein, RN RN bp Corrections: (The following items were deleted from the chart) 12/13 13:03 12:53 12/14/2019 12:53 Discharged to Home. Impression: Otitis media, unspecified, right bp ear; Anxiety disorder, unspecified; Chronic obstructive pulmonary disease, unspecified. Condition is Stable. Forms are Medication Reconciliation Form, Thank You Letter, Antibiotic Education, Prescription Opioid Use. Follow up: Emergency Department; When: As needed; Reason: Worsening of condition. Follow up: Private Physician; When: 2 - 3 days; Reason: Recheck today's complaints, Continuance of care, Re-evaluation by your physician. Problem is new. Symptoms have improved. pm1 16:57 09:26 Constitutional: Negative for fever, chills, and weight loss, Eyes: Negative for pm1 injury, pain, redness, and discharge, ENT: Negative for injury, pain, and discharge, Neck: Negative for injury, pain, and swelling, Cardiovascular: Negative for chest pain, palpitations, and edema, pm1
[2019-12-14 13:30] VITALS: BP 96/61; TEMP 97.5; O2SAT 97
== END 2019-12-14 13:03 | disposition home or self-care (01) ==
LOC: ER 08:42
DX: J44.9 Chronic obstructive pulmonary disease, unspecified (principal); Z20.828 Contact with and (suspected) exposure to other viral communicable diseases; H66.91 Otitis media, unspecified, right ear; F41.9 Anxiety disorder, unspecified; F17.210 Nicotine dependence, cigarettes, uncomplicated; Z88.5 Allergy status to narcotic agent
CPT/HCPCS: 36415; 71045; 80048; 80076; 83735; 83880; 84484; 85025; 85610; 87070; 87081; 87804; 93005; 96361; 96365; 96366; 99285; J0696; J7040; J7512; U0002

== ENCOUNTER 2020-02-25 18:53 | Emergency (ER) | payer SELFPAY ==
--- OUTSIDE RECORDS SUMMARY | 2020-02-25 19:13 | XMS REPORT | Continuity of Care Document ---
:1965 Author Organization [facility] t Address [address] [place] [place] [address] Care Team Providers Name Role Phone Ebenezer North DO Attending Clinician Doctor Unassigned, [place] Attending Clinician Unavailable Problems This patient has no known problems. Allergies, Adverse Reactions, Alerts This patient has no known allergies or adverse reactions. Medications This patient has no known medications. Procedures This patient has no known procedures. Encounters Start End Encounter Admission Attending Care Care Encounter Source Date/Time Date/Time Type Type Clinicians Facility Department ID 2019-08-06 2019-08-06 Emergency [facility] [id number] 09:32:38 10:13:00 Ebenezer Vergara [id number] [place] [id number] [place] [id number] 2019-08-06 2019-08-06 Orders Doctor BELL [id number] 00:00:00 00:00:00 Only UnassLETICIA muhammad [id number] [place] [facility] [id number] Results This patient has no known results.
[2020-02-25] MEDS ORDERED: FENTANYL CITR 100 MCG/2 ML ONE (20:01)
[2020-02-25] MEDS ORDERED: DIAZEPAM 5 MG TABLET ONE (20:01)
[2020-02-25 20:04] LABS: Urine Blood 1+ (NEG); Urine Glucose NEGATIVE (NEG); Urine Protein NEGATIVE (NEG); Urine Specific Gravity 1.015 (1.005-1.030); Urine pH 5.5 (5.0-7.0)
[2020-02-25 20:09] LABS: Urine Bacteria 20-50 /HPF (<20)
[2020-02-25 20:10] LABS: Urine Mucus 4+ /HPF (NONE SEEN)
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
== END 2020-02-25 20:44 | disposition home or self-care (01) ==
LOC: ER 18:53
DX: R30.0 Dysuria (principal); Z72.0 Tobacco use; Z88.6 Allergy status to analgesic agent
CPT/HCPCS: 81003; 81015; 87086; 87088; 96372; 99284; J3010

== ENCOUNTER 2020-09-18 12:23 | Emergency (ER) | payer SELFPAY ==
--- OUTSIDE RECORDS SUMMARY | 2020-09-18 12:27 | XMS REPORT | Continuity of Care Document ---
:1965 Author Organization [facility] t Address [address] [place] [address] Care Team Providers Name Role Phone Rome Montaño Attending Clinician [place] Attending Clinician Doctor Unassigned, Name Attending Clinician Unavailable Problems This patient has no known problems. Allergies, Adverse Reactions, Alerts This patient has no known allergies or adverse reactions. Medications This patient has no known medications. Procedures This patient has no known procedures. Encounters Start End Encounter Admission Attending Care Care Encounter Source Date/Time Date/Time Type Type Clinicians Facility Department ID 2020-05-05 2020-05-05 Emergency Rome Crowley [facility] [id number] 12:52:00 22:24:00 Corinna Vergara [id number] [place] [id number] [place] [address] [id number] 2019-08-06 2019-08-06 JACE Calloway [id number] 09:32:38 10:13:00 Ebenezer Vergara [id number] [place] [id number] [place] [address] [id number] 2019-08-06 2019-08-06 Orders Doctor BELL [id number] 00:00:00 00:00:00 Only Unassigned, [place] [id number] [place] [facility] [id number] Results This patient has no known results.
[2020-09-18 13:13] LABS: Absolute Lymphocytes (CBC) 1.7 K/uL (0.7-4.9); Basophils % 0.8 % (0-1.3); Hematocrit 43.2 % (36.0-45.0); Lymphocytes % 12.9 % (15.3-44.8); MPV 9.6 fL (7.6-11.3); RBC Red Blood Cell Count 4.77 M/uL (3.86-4.86)
[2020-09-18] MEDS ORDERED: ONDANSETRON 4 MG/2 ML VIAL ONE (13:22)
[2020-09-18] MEDS ORDERED: NA CHLORIDE 0.9% 500 ML ONE ×2 (13:22→14:49)
[2020-09-18] MEDS ORDERED: FAMOTIDINE 20 MG/2 ML VIAL IV ONE (13:22)
[2020-09-18] MEDS ORDERED: LORazepam 2 MG/ML VIAL ONE (13:22)
[2020-09-18 13:28] LABS: Bilirubin Direct 0.2 mg/dL (0-0.2); Bilirubin Total 0.8 mg/dL (0.2-1.0); Potassium 3.2 mmol/L (3.5-5.1); Protein, Total 8.6 g/dL (6.4-8.2)
[2020-09-18] MEDS ORDERED: METOCLOPRAMIDE 10 MG/2mL INJ ONE (14:49)
[2020-09-18] MEDS ORDERED: DIPHENHYDRAMINE 50 MG/ML VIAL ONE (14:49)
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
[2020-09-18 16:15] VITALS: TEMP 97.7
[2020-09-18 16:18] VITALS: BP 151/86; O2SAT 97
== END 2020-09-18 16:03 | disposition home or self-care (01) ==
LOC: ER 12:23
DX: F41.1 Generalized anxiety disorder (principal); R53.1 Weakness; E11.9 Type 2 diabetes mellitus without complications; F17.210 Nicotine dependence, cigarettes, uncomplicated; Z88.8 Allergy status to other drugs, medicaments and biological substances
CPT/HCPCS: 36415; 80048; 80076; 83690; 85025; 96361; 96374; 96375; 99284; J1200; J2405; J2765; J7040

== ENCOUNTER 2023-11-12 09:08 | Emergency (ER) | payer SELFPAY ==
--- OUTSIDE RECORDS SUMMARY | 2023-11-12 09:12 | XMS REPORT | Continuity of Care Document ---
Author Name Unknown Address [address] [facility] [place] [address] [facility] thconnect Address [address] [facility] [place] [address] Care Team Providers Care Echo Vascular Technologist Name Role Phone Rome Montaño Attending Clinician [phone] Ebenezer North DO Attending Clinician [phone] EBENEZER NORTH Attending Clinician Unavailable Doctor Unassigned, [place] Attending Clinician U navailable Payers Payer Name Policy Type Policy Number Effective Date Expirati on Date Source Problems Condition Name Condition Details Condition Category Status Onset Date Resolution Date Last Treatment Date Treating Clinician Comments Source No known active problems No known active problems Disease [facility] Allergies, Adverse Reactions, Alerts Allergy Name Allergy Type Status Severity Reaction(s) Onset Date Inactive Date Treating Clinician Comments Source Hydromor phone (Bulk) Propensi ty to adverse reaction s Active Hives 2015-03 00:00: 00 [facility] HYDROMOR PHONE (BULK) DRUG Active Hives 2015-03 00:00: 00 [facility] Social History Social Habit Start Date Stop Date Quantity Comments Source Sex Assigned At [facility] Exposure to SARS-CoV-2 (event) Not sure [facility] Smoking Status Start Date Stop Date Source Unknown if ever smoked [facility] Medications Ordered Medication Name Filled Medication Name Start Date Stop Date Current Medication? Ordering Clinician Indication Dosage Frequency Signature (SIG) Comments Components Source cefTRIAXone (ROCEPHIN) 1,000 mg in NaCl 0.9% (NS) 50 mL MINI-BAG 05-06 04:45: 00 05-06 04:10 :00 No 1000mg 1,000 mg, IV Piggyback, ONCE, 1 dose, 05/05/20 at 2245, 50 mL
Reas on for Anti-Infec tive: Documented Infection< br>Documen hayden Infection Site: Urine
D uration of Therapy: 10 days [facility] iohexol (OMNIPAQUE 350 BULK-150 mL) injection 120 mL 05-06 02:50: 00 05-06 02:50 :00 No 120mL 120 mL, Intravenou s, ONCE, 1 dose, 05/05/20 at 2100, Routine [facility] maalox:diph enhydrAMINE :lidocaine 2 % viscous 1:1:1 ([facility]) oral suspension 15 mL 05-06 02:15: 00 05-06 02:09 :00 No 15mL 15 mL, Oral (Swish & Swallow), ONCE, 1 dose, 05/05/20 at 2015, Routine [facility] famotidine 20 mg in NS 50 ml (PEPCID) 20 mg/50 mL Piggyback 20 mg 05-06 02:15: 00 05-06 02:20 :00 No 20mg 20 mg, IV Piggyback, ONCE, 1 dose, 05/05/20 at 2015, 50 mL [facility] ondansetron (ZOFRAN (PF)) injection 4 mg 05-06 02:00: 00 05-06 01:57 :00 No 4mg 4 mg, Slow IV Push, ONCE, 1 dose, 05/05/20 at 2000, STEPHANE [facility] NaCl 0.9% (NS) bolus infusion 1,000 mL 05-06 02:00: 05-06 04:00 :00 No 1000mL at 999 mL/hr, 1,000 mL, IV Infusion, ONCE, 1 dose, 05/05/20 at 2000, STAT [facility] ondansetron (ZOFRAN ODT) 4 mg disintegrat ing tablet 05-05 00:00: 00 Yes [id number] 4mg Take 1 tablet by mouth every 8 (eight) hours as needed for Nausea and Vomiting (N/V). [facility] cephALEXin (KEFLEX) 500 mg capsule 05-05 00:00: 00 05-16 05:59 :00 No [id number] 500mg Take 1 capsule by mouth 3 (three) times daily for 10 days. [facility] ibuprofen 600 mg tablet 2018-03 00:00: 00 Yes [id number] 600mg Take 1 tablet by mouth every 6 (six) hours as needed for Pain (scale 4-6). [facility] azithromyci n (ZITHROMAX Z-ZUNILDA) 250 mg tablet 2018-03 00:00: 00 Yes [id number] 250mg Take 1 tablet by mouth SEE-INSTRU CTIONS. Take 500 mg day 1, then 250 mg days 2 to 5. [facility] OMEPRAZOLE (PRILOSEC ORAL) 09-03 05:49: 11 Yes Take by mouth. [facility] predniSONE 10 mg tablet 07-19 00:00: 00 Yes One tablet daily [facility] proMETHazin e 25 mg tablet 07-19 00:00: 00 Yes 25mg Take 1 tablet by mouth every 6 (six) hours as needed for N/V unresponsi ve to Ondansetro n. [facility] ALPRAZolam (XANAX) 0.25 mg tablet 07-19 00:00: 00 Yes .25mg Take 1 tablet by mouth 3 (three) times daily. [facility] proMETHazin e (PHENERGAN) 25 mg tablet 2015-03 00:00: 00 Yes 25mg Take 1 tablet by mouth every 6 (six) hours as needed for Nausea and Vomiting (N/V). [facility] Vital Signs Vital Name Observation Time Observation Value Comments S ruben Systolic blood pressure 2020-05-06 04:00:00 114 mm[Hg] [facility] Diastolic blood pressure 2020-05-06 04:00:00 67 mm[Hg] [facility] Heart rate 2020-05-06 04:00:00 84 /min [facility] Respiratory rate 2020-05-06 04:00:00 17 /min [facility] Oxygen saturation in Arterial blood by Pulse oximetry 2020-05-06 04:00:00 95 /min [facility] Body temperature 2020-05-05 18:51:[address] [facility] Body weight 2020-05-05 18:51:00 68.04 kg [facility] BMI 2020-05-05 18:51:00 24.21 kg/m2 [facility] Systolic blood pressure 2020-05-06 04:00:00 114 mm[Hg] [facility] Diastolic blood pressure 2020-05-06 04:00:00 67 mm[Hg] [facility] Heart rate 2020-05-06 04:00:00 84 /min [facility] Respiratory rate 2020-05-06 04:00:00 17 /min [facility] Oxygen saturation in Arterial blood by Pulse oximetry 2020-05-06 04:00:00 95 /min [facility] Body temperature 2020-05-05 18:51:[address] [facility] Body weight 2020-05-05 18:51:00 68.04 kg [facility] BMI 2020-05-05 18:51:00 24.21 kg/m2 [facility] Systolic blood pressure 2019-08-06 14:34:00 149 mm[Hg] [facility] Diastolic blood pressure 2019-08-06 14:34:00 94 mm[Hg] [facility] Heart rate 2019-08-06 14:34:00 104 /min [facility] Body temperature 2019-08-06 14:34:[address] [facility] Respiratory rate 2019-08-06 14:34:00 18 /min [facility] Body height 2019-08-06 14:34:00 167.6 cm [facility] Body weight 2019-08-06 14:34:00 81.647 kg [facility] BMI 2019-08-06 14:34:00 29.05 kg/m2 [facility] Oxygen saturation in Arterial blood by Pulse oximetry 2019-08-06 14:34:00 98 /min [facility] Systolic blood pressure 2019-08-06 14:34:00 149 mm[Hg] [facility] Diastolic blood pressure 2019-08-06 14:34:00 94 mm[Hg] [facility] Heart rate 2019-08-06 14:34:00 104 /min [facility] Body temperature 2019-08-06 14:34:[address] [facility] Respiratory rate 2019-08-06 14:34:00 18 /min [facility] Body height 2019-08-06 14:34:00 167.6 cm [facility] Body weight 2019-08-06 14:34:00 81.647 kg [facility] BMI 2019-08-06 14:34:00 29.05 kg/m2 [facility] Oxygen saturation in Arterial blood by Pulse oximetry 2019-08-06 14:34:00 98 /min [facility] Procedures Procedure Date / Time Performed Performing Clinicia n Source CT ABDOMEN PELVIS W CONTRAST 2020-05-06 02:57:[address] [facility] CBC WITH DIFF 2020-05-06 01:05:00 Rome Crowley [facility] LIPASE 2020-05-06 01:04:[address] [facility] MAGNESIUM 2020-05-06 01:04:00 [facility] TROPONIN I 2020-05-06 01:04:00 [facility] COMP. METABOLIC PANEL ([id number]) 2020-05-06 01:04:[address] [facility] URINALYSIS 2020-05-06 01:04:00 Keo Rome Weinstein [facility] CONSENT/REFUSAL FOR DIAGNOSIS AND TREATMENT 2019-08-06 14:27:44 Doctor Unassigned, [place] [facility] Encounters Start Date/Time End Date/Time Encounter Type Admission Type Attending [facility] Care Department Encounter ID Source 2020-05-05 12:52:00 2020-05-05 22:24:00 Emergency Rome Crowley [facility] [id number] 2020-05-05 12:52:00 2020-05-05 22:24:00 Emergency Rome Crowley [facility] [id number] [facility] 2020-05-05 12:52:00 2020-05-05 12:52:00 Emergency X [facility] ERT [id number] [facility] 2019-08-06 09:32:38 2019-08-06 10:13:00 Emergency [facility] [id number] 2019-08-06 09:32:38 2019-08-06 10:13:00 Emergency [facility] [id number] [id number] [facility] 2019-08-06 09:32:38 2019-08-06 09:32:38 Emergency X [facility] ERT [id number] [facility] 2019-08-06 00:00:00 2019-08-06 00:00:00 Orders Only Doctor Unassigned, [place] [facility] [id number] [id number] 2019-08-06 00:00:00 2019-08-06 00:00:00 Orders Only Doctor Unassigned, [place] [facility] [id number] [id number] [id number] [facility] Results Test Description Test Time Test Comments Results Result Comments Source CT ABDOMEN PELVIS W CONTRAST 04:18:37 Under distended urinary bladder with nonspecific moderate circumferentialwall thickening. Consider correlation with urinalysis if there is concernfor cystitis. Hepatomegaly. Indeterminate left hepatic lobe hypoattenuating lesion, possiblyhemangioma. Further characterization with contrast-enhanced MRI may beobtained on a nonemergent outpatient basis. Preliminary Report Dictated by Resident: Ephraim Del Rosario MD., have reviewed this study and agree withthe above report.CT ABDOMEN PELVIS W CONTRAST HISTORY: Abdominal pain, acute, nonlocalized TECHNIQUE: Contrast-enhanced spiral CT of the abdomen and pelvis wasperformed with multiplanar reformatted images provided for review. COMPARISON: None FINDINGS: LOWER THORAX: Dependent atelectasis. LIVER: Other enlarged measuring 19.7 cm in craniocaudal dimension withnormal contour. Geographic focal fatty sparing is seen along the falciformligament. Hypoattenuating 1.7 cm left hepatic lobe lesion, likely hepatichemangioma. GALLBLADDER & BILIARY TREE: The gallbladder is unremarkable. PANCREAS: No focal lesion or ductal dilation. SPLEEN: No splenomegaly. ADRENALS: No adrenal nodules. KIDNEYS: Bilateral subcentimeter hypoattenuating lesions, statisticallylikely simple cysts. No hydronephrosis or stones. ? PELVIS/BLADDER: The urinary bladder is underdistended with moderatecircumferential wall thickening. Anteverted uterus. No suspicious adnexalmasses.. GASTROINTESTINAL: Small sliding hiatal hernia. No evidence of bowelobstruction or perienteric inflammation. The appendix is definitively seenhowever no inflammatory changes are seen in the right lower quadrant. PERITONEUM/RETROPERITONEUM : No free air or fluid. VASCULAR: ?A sclerotic osseous lesions are noted in the abdominal aorta andits branches. LYMPHATICS: No enlarged lymph nodes by CT size criteria. Grade 1retrolisthesis of L5 on S1 with chronic degenerative changes mostpronounced at the lumbosacral junction. BONES AND SOFT TISSUES: No concerning bony lesion identified. [facility], Radiant Results Inft User - 05/05/2020 10:19 PM CSTCT ABDOMEN PELVIS W CONTRASTHISTORY: Abdominal pain, acute, nonlocalized TECHNIQUE: Contrast-enhanced spiral CT of the abdomen and pelvis wasperformed with multiplanar reformatted images provided for review.COMPARISON: NoneFINDINGS:LOWER THORAX: Dependent atelectasis. LIVER: Other enlarged measuring 19.7 cm in craniocaudal dimension withnormal contour. Geographic focal fatty sparing is seen along the falciformligament. Hypoattenuating 1.7 cm left hepatic lobe lesion, likely hepatichemangioma. GALLBLADDER & BILIARY TREE: The gallbladder is unremarkable.PANCREAS: No focal lesion or ductal dilation. SPLEEN: No splenomegaly. ADRENALS: No adrenal nodules. KIDNEYS: Bilateral subcentimeter hypoattenuating lesions, statisticallylikely simple cysts. No hydronephrosis or stones. PELVIS/BLADDER: The urinary bladder is underdistended with moderatecircumferential wall thickening. Anteverted uterus. No suspicious adnexalmasses.. GASTROINTESTINAL: Small sliding hiatal hernia. No evidence of bowelobstruction or perienteric inflammation. The appendix is definitively seenhowever no inflammatory changes are seen in the right lower quadrant. PERITONEUM/RETROPERITONEUM : No free air or fluid.VASCULAR: A sclerotic osseous lesions are noted in the abdominal aorta andits branches. LYMPHATICS: No enlarged lymph nodes by CT size criteria. Grade 1retrolisthesis of L5 on S1 with chronic degenerative changes mostpronounced at the lumbosacral junction.BONES AND SOFT TISSUES: No concerning bony lesion identified. IMPRESSIONUnder distended urinary bladder with nonspecific moderate circumferentialwall thickening. Consider correlation with urinalysis if there is concernfor cystitis.Hepatomegaly.Inde terminate left hepatic lobe hypoattenuating lesion, possiblyhemangioma. Further characterization with contrast-enhanced MRI may beobtained on a nonemergent outpatient basis.Preliminary Report Dictated by Resident: Ephraim Ruano MD., have reviewed this study and agree withthe above report. [id number]:43:00* Test Item Value Reference Range Interpretation Comme nts TROPONIN I (test code = 1811575092) 0.034 ng/mL See_Comment [Automated message] The system which generated this result transmitted reference range: <=0.034. The reference range was not used to interpret this result as normal/abnormal. KARYN (test code = KARYN) Equal or Less than 0.034 ng/ml---Normal ?Note: Cardiac troponin begins to rise 3-4 hours after the onset of ischemia. Repeat in 4-6 hours if the sample was drawn within 3-4 hours of the onset of the symptom and found normal. Between 0.035 and 0.120 ng/mL--- Borderline. Questionable myocardial injury or necrosis ? ?Note: Serial measurement may be necessary to confirm or exclude the diagnosis of myocardial injury or necrosis; Clinical correlation (symptoms, EKGs, imaging studies, and others) required; Repeat in 4-6 hours if clinically indicated. ? Equal or Higher than 0.121 ng/mL---Abnormal. Myocardial Injury or Necrosis Likely ? Biotin has been reported to cause a negative bias, interpret results relative to patient's use of biotin. ? Lab Interpretation (test code = 78559-0) Normal [facility] 01:33:00* Test Item Value Reference Range Interpretation Comme nts MAGNESIUM (test code = 8045671562) 2.1 mg/dL 1.7-2.4 Lab Interpretation (test cod e = 37850-0) Normal [facility] ([id number])2020-05-06 01:32:00* Test Item Value Reference Range Interpretation Comme nts NA (test code = 1948476342) 136 mmol/L 135-145 K (test code = 0901316044) 4.5 mmol/L 3.5-5 CL (test code = 5161921659) 96 mmol/L 98-108 L CO2 TOTAL (test code = 6744782590) 28 mmol/L 23-31 AGAP (test code = 6135653752) 2-16 BUN (test code = 4898082460) 15 mg/dL 7-23 GLUCOSE (test code = 5229276219) 113 mg/dL 70-110 H CREATININE (test code = 5646841831) 0.67 mg/dL 0.5-1.04 TOTAL BILI (test code = 2030712218) 1.4 mg/dL 0.1-1.1 H CALCIUM (test code = 7474246436) 9.7 mg/dL 8.6-10.6 T PROTEIN (test code = 8292687615) 9.7 g/dL 6.3-8.2 H ALBUMIN (test code = 5683849329) 5.3 g/dL 3.5-5 H ALK PHOS (test code = 1526427881) 82 U/L 34-122 ALTv (test code = 1742-6) 48 U/L 5-35 H AST(SGOT) (test code = 3258867246) 59 U/L 13-40 H eGFR Calculation (Non-) (test code = 3171297320) mL/min/1.73m2 eGFR Calculation () (test code = 3447015999) mL/min/1.73m2 KARYN (test code = KARYN) Association of Glomerular Filtration Rate (GFR) and Staging of Kidney Disease* + --+ --+ ------+| GFR (mL/min/1.73 m2) ?| With Kidney Damage ?| ?Without Kidney Damage+ --------+ --------+ +| ?>90 ?| ?Stage one ?| ? Normal ?+ ---+ ---+ -------+| ?60-89 ?| ?Stage two ?| ? Decreased GFR ? + --+ --+ ------+| ?30-59 ?| ?Stage three ?| ? Stage three ? + --+ --+ ------+| ?15-29 ?| ?Stage four ? | ? Stage four ?+ ---+ ---+ -------+| ?<15 (or dialysis) ? ?| ?Stage five ? | ? Stage five ?+ ---+ ---+ -------+ *Each stage assumes the associated GFR level has been in effect for at least three months. ?Stages 1 to 5, with or without kidney disease, indicate chronic kidney disease. Notes: Determination of stages one and two (with eGFR >59mL/min/1.73 m2) requires estimation of kidney damage for at least three months as defined by structural or functional abnormalities of the kidney, manifested by either:Pathological abnormalities or Markers of kidney damage (including abnormalities in the composition of the blood or urine or abnormalities in imaging tests). Lab Interpretation (test code = 82845-2) [facility]normal [facility] 01:32:00* Test Item Value Reference Range Interpretation Comme nts LIPASE (test code = 5613945840) 83 U/L 0-220 Lab Interpretation (test cod e = 06490-5) Normal [facility] WITH [id number] 01:21:00* Test Item Value Reference Range Interpretation Comme nts WBC (test code = 6690-2) See_Comment H [Automated message] The system which generated this result transmitted reference range: 4.30 - 11.10 10*3/?L. The reference range was not used to interpret this result as normal/abnormal. RBC (test code = 789-8) See_Comment [Automated message] The system which generated this result transmitted reference range: 3.93 - 5.25 10*6/?L. The reference range was not used to interpret this result as normal/abnormal. HGB (test code = 718-7) 16.1 g/dL 11.6-15 H HCT (test code = 4544-3) 46.9 % 35.7-45.2 H MCV (test code = 787-2) 90.2 fL 80.6-95.5 MCH (test code = 785-6) 31.0 pg 25.9-32.8 MCHC (test code = 786-4) 34.3 g/dL 31.6-35.1 RDW-SD (test code = 73944-9) 42.6 fL 39-49.9 RDW-CV (test code = 788-0) 13.0 % 12-15.5 PLT (test code = 777-3) See_Comment [Automated message] The system which generated this result transmitted reference range: 166 - 358 10*3/?L. The reference range was not used to interpret this result as normal/abnormal. MPV (test code = 02168-7) 10.1 fL 9.5-12.9 NRBC/100 WBC (test code = 8903664426) See_Comment [Automated message] The system which generated this result transmitted reference range: 0.0 - 10.0 /100 WBCs. The reference range was not used to interpret this result as normal/abnormal. NRBC x10^3 (test code = 6201248632) <0.01 See_Comment [Automated message] The system which generated this result transmitted reference range: 10*3/?L. The reference range was not used to interpret this result as normal/abnormal. GRAN MAT (NEUT) % (test code = 770-8) 77.3 % IMM GRAN % (test code = 5639302746) 0.40 % LYMPH % (test code = 736-9) 16.3 % MONO % (test code = 5905-5) 5.6 % EOS % (test code = 713-8) 0.0 % BASO % (test code = 706-2) 0.4 % GRAN MAT x10^3(ANC) (test code = 7814878388) 12.59 10*3/uL 1.88-7.09 H IMM GRAN x10^3 (test code = 1224626016) 0.07 10*3/uL 0-0.06 H LYMPH x10^3 (test code = 731-0) 2.66 10*3/uL 1.32-3.29 MONO x10^3 (test code = 742-7) 0.91 10*3/uL 0.33-0.92 EOS x10^3 (test code = 711-2) <0.03 0.03-0.39 L BASO x10^3 (test code = 704-7) 0.06 10*3/uL 0.01-0.07 Lab Interpretation (test code = 05468-9) Abnormal [facility]"
[2023-11-12] MEDS ORDERED: PANTOPRAZOLE 40 MG INJ ONE (10:02)
[2023-11-12] MEDS ORDERED: ONDANSETRON 4 MG/2 ML VIAL ONE (10:02)
[2023-11-12] MEDS ORDERED: MORPHINE 4 MG/ML SYR ONE (10:03)
[2023-11-12 10:40] LABS: SARS-CoV-2 Antigen CONTROL BLUE LINE VIS/BG OK; SARS-CoV-2 Antigen Rapid Res Negative (Negative)
[2023-11-12 11:00] LABS: Absolute Basophils 0.1 K/uL (0-0.5); Absolute Eosinophils 0.1 K/uL (0-0.5); Absolute Lymphocytes (CBC) 3.3 K/uL (0.7-4.9); Absolute Monocytes 0.7 K/uL (0.1-1.3); Absolute Neutrophil 10.7 K/uL (1.8-8.0); Basophils % 0.8 % (0-1.3); Eosinophils % 0.6 % (0-4.4); Hematocrit 45.1 % (36.0-45.0); Lymphocytes % 21.9 % (15.3-44.8); MCH 30.7 pg (27.0-35.0); MCHC 33.2 g/dL (32.0-36.0); MCV 92.5 fL (80-100); Monocytes % 4.5 % (3.3-12.3); Neutrophils % 72.2 % (41.7-73.7); Platelets 215 thou/uL (152-406); RBC Red Blood Cell Count 4.87 M/uL (3.86-4.86)
[2023-11-12 11:19] LABS: Albumin 3.6 g/dL (3.4-5.0); Albumin/Globulin Ratio 0.8 (1.1-1.8); Anion Gap 8.4 mEq/L (5.0-15.0); Bilirubin Direct 0.2 mg/dL (0-0.2); Bilirubin Indirect, Calculated 0.8 mg/dL (0.2-0.8); Globulin 4.6 g/dL (2.3-3.5); Magnesium 2.3 mg/dL (1.6-2.4); Potassium 3.4 mEq/L (3.5-5.1); Protein, Total 8.2 g/dL (6.4-8.2)
--- NOTE | 2023-11-12 11:46 | RAD REPORT ---
EXAM DESCRIPTION: [place] Single View11/12/2023 11:04 am CLINICAL HISTORY: epigastric pain COMPARISON: Chest Single View dated 12/14/2019; Chest Single View dated 06/29/2018; Chest Single View dated 03/16/2018; Chest Single View dated 01/24/2017 TECHNIQUE: Portable AP view of the chest. FINDINGS: The lungs are clear. No pneumothorax or effusion. The cardiomediastinal contours are unre markable. IMPRESSION: No acute cardiopulmonary process.
--- NOTE | 2023-11-12 13:00 | RAD REPORT ---
EXAM DESCRIPTION: CT - Abdomen Pelvis W Contrast - 11/12/2023 12:19 pm CLINICAL HISTORY: EPIGASTRIC PAIN COMPARISON: Abdomen Pelvis W Contrast dated 01/13/2017; CT ABD PELVIS W CONTRAST dated 05/22/2015; C T ABD PELVIS W CONTRAST dated 05/04/2007; Head C Spine Cap W Con dated 03/16/2018 TECHNIQUE: Thin cut axial CT imaging of the abdomen and pelvis was performed following intravenous a dministration of iodinated contrast. Multiplanar reformats were generated and reviewed. All CT scans are performed using dose optimization technique as appropriate and may include automated exposure control or mA/KV adjustment according to patient size. FINDINGS: No suspicious findings in the lung bases. The liver shows a stable 1.5 cm hypoattenuating left lobe lesion suggesting a cyst, although not well characterized. Adrenal glands, spleen, and pancreas show no suspicious findings. Gallbladder and jordan iary tree are also without suspicious finding. Symmetric renal function is seen with no hydronephrosis or suspicious renal mass. 1 cm left lower norberto e cyst, stable. No dilated bowel loops or bowel wall thickening. No free air, free fluid or inflammatory stranding. N o hernia, mass or bulky lymphadenopathy. The urinary bladder is without significant finding. No suspicious bony findings. Mild lower thoracic superior endplate compression deformities. IMPRESSION: No acute intra-abdominal process. Stable incidental findings as above.
[2023-11-12] MEDS ORDERED: POTASSIUM 25 MEQ EFFERV TAB ONE (13:37)
--- NOTE | 2023-11-12 13:47 | ER ---
Nurse's Notes [facility] Name: Teagan Bailey Age: 58 yrs Sex: Female : 1965 Arrival Date: 11/12/2023 Time: 09:08 Bed 14 Private MD: Diagnosis: Nausea with vomiting, unspecified;Epigastric pain Presentation: 11/11 09:45 Chief complaint: N/V and upper abdominal pain after eating jalapenos 2 nights ago. hb Coronavirus screen: At this time, the client does not indicate any symptoms associated with coronavirus-19. Ebola Screen: No symptoms or risks identified at this time. Initial Sepsis Screen: Does the patient meet any 2 criteria? No. Patient's initial sepsis screen is negative. Does the patient have a suspected source of infection? No. Patient's initial sepsis screen is negative. Risk Assessment: Do you want to hurt yourself or someone else? Patient reports no desire to harm self or others. Onset of symptoms was November 10, 2023. 09:45 Method Of Arrival: Ambulatory 09:45 Acuity: DARRELL 3 hb Triage Assessment: 09:54 General: Appears distressed, Behavior is cooperative, appropriate for age, agitated, bp anxious. Pain: Complains of pain in abdomen. EENT: No deficits noted. Neuro: No deficits noted. Cardiovascular: No deficits noted. Respiratory: No deficits noted. GI: Reports upper abdominal pain, nausea. : No signs and/or symptoms were reported regarding the genitourinary system. Derm: No deficits noted. Musculoskeletal: No deficits noted. Historical: - Allergies: 09:47 Dilaudid; hb - PMHx: 09:47 Anxiety; Asthma; Bronchitis; COPD; Diabetes - NIDDM; Seizures; skin ca; hb - PSHx: 09:47 Total abdominal hysterectomy; hb - Immunization history:: Adult Immunizations up to date. - Infectious Disease History:: Denies. - Social history:: Smoking status: Patient reports the use of cigarette tobacco products. Screenin:54 [facility] ED Fall Risk Assessment (Adult) History of falling in the last 3 months, bp including since admission No falls in past 3 months (0 pts) Confusion or Disorientation No (0 pts) Intoxicated or Sedated No (0 pts) Impaired Gait No (0 pts) Mobility Assist Device Used No (0 pt) Altered Elimination No (0 pt) Score/Fall Risk Level 0 - 2 = Low Risk. Abuse screen: Denies threats or abuse. Denies injuries from another. Nutritional screening: No deficits noted. Tuberculosis screening: No symptoms or risk factors identified. Assessment: 09:54 General: Appears distressed, uncomfortable, Behavior is cooperative, appropriate for bp age, agitated, anxious. GI: Bowel sounds present X 4 quads. Abd is soft X 4 quads. 12:00 Reassessment: No changes from previously documented assessment. Patient is alert, bp oriented x 3, equal unlabored respirations, skin warm/dry/pink. 13:39 Reassessment: No changes from previously documented assessment. Patient is alert, bp oriented x 3, equal unlabored respirations, skin warm/dry/pink. Vital Signs: 09:45 BP 132 / 102; Pulse 92; Resp 18; Temp 98(O); Pulse Ox 100% on R/A; Weight 77.11 kg; hb Height 5 ft. 6 in. ; Pain 10/10; 13:38 BP 137 / 95; Pulse 91; Resp 16; Pulse Ox 98% ; bp 09:45 Body Mass Index 27.44 (77.11 kg, 167.64 cm) hb 09:45 Pain Scale: Adult hb ED Course: 09:11 Patient arrived in ED. ra3 09:42 Shara Quintana, RN is Primary Nurse. hb 09:42 Abhay Torres PA is PHCP. cp 09:42 Michelle Max MD is Attending Physician. cp 09:47 Triage completed. hb 09:48 Arm band placed on. hb 09:54 Primary Nurse role handed off by Shara Quintana, HARRY bp 09:54 Renato Goldstein, RN is Primary Nurse. bp 09:54 Patient has correct armband on for positive identification. bp 10:15 Influenza Screen (a \T\ B) Sent. em1 10:15 SARS RAPID Sent. em1 10:15 Lipase Sent. em1 10:15 Basic Metabolic Panel Sent. em1 10:15 CBC with Diff Sent. em1 10:15 LFT's Sent. em1 10:15 Magnesium Sent. em1 10:15 Troponin HS Sent. em1 10:16 Initial lab(s) drawn, by me, sent to lab. Inserted saline lock: 20 gauge in right hand, em1 using aseptic technique. Blood collected. Flushed with 10 mL NS. 10:25 EKG done, by ED staff, reviewed by Renato Goldstein RN. cc6 11:06 XRAY Chest (1 view) In Process Unspecified. EDMS 12:21 CT Abd/Pelvis - IV Contrast Only In Process Unspecified. EDMS 14:00 No provider procedures requiring assistance completed. IV discontinued, intact, bp bleeding controlled, No redness/swelling at site. Pressure dressing applied. Administered Medications: 10:29 Drug: Ondansetron IVP 4 mg IVP once; over 2 minutes Route: IVP; Site: right hand; bp 11:52 Follow up: Response: No adverse reaction bp 10:29 Drug: morphine IVP or IV 4 mg IVP once over 4 mins Route: IVP; Infused Over: 4 mins; bp Site: right hand; 11:52 Follow up: Response: No adverse reaction bp 10:30 Drug: Pantoprazole IVP 40 mg IVP once Route: IVP; Site: right hand; bp 11:52 Follow up: Response: No adverse reaction bp 13:38 Drug: Potassium PO Effervescent Tablet 25 mEq PO once; dissolve in 4 ounces of water or bp juice Route: PO; 14:01 Follow up: Response: No adverse reaction bp Medication: 09:54 VIS not applicable for this client. bp Outcome: 13:47 Discharge ordered by . cp 14:00 Discharged to home ambulatory, with family, bp 14:00 Condition: stable 14:00 Discharge instructions given to patient, Instructed on discharge instructions, follow up and referral plans. medication usage, Demonstrated understanding of instructions, follow-up care, medications, Prescriptions given X 2, 14:01 Patient left the ED. bp Signatures: Dispatcher [employer] EDMS Caesar Pyle em1 Abhay Torres PA PA cp Baxter, Heather, RN RN hb Peltier, Brian, RN RN bp Alva, Ruby 3 Myriam Murray cc6
--- NOTE | 2023-11-12 13:47 | EDPHYS ---
Physician Documentation [facility] Name: Teagan Bailey Age: 58 yrs Sex: Female : 1965 Arrival Date: 11/12/2023 Time: 09:08 Bed 14 Private MD: ED Physician Michelle Max HPI: 11/11 10:00 This 58 yrs old Female presents to ER via Ambulatory with complaints of Abdominal Pain, cp Nausea/Vomiting. 10:00 The patient presents with abdominal pain in the epigastric area. cp 10:00 Onset: The symptoms/episode began/occurred 2 day(s) ago. Associated signs and symptoms: cp Pertinent positives: chest pain, vomiting. Historical: - Allergies: :47 Dilaudid; hb - PMHx: 09:47 Anxiety; Asthma; Bronchitis; COPD; Diabetes - NIDDM; Seizures; skin ca; hb - PSHx: 09:47 Total abdominal hysterectomy; hb - Immunization history:: Adult Immunizations up to date. - Infectious Disease History:: Denies. - Social history:: Smoking status: Patient reports the use of cigarette tobacco products. ROS: 10:05 Constitutional: Negative for body aches, chills, fever, poor PO intake, cp 10:05 Eyes: Negative for injury, pain, redness, and discharge, cp 10:05 Cardiovascular: Positive for chest pain, 10:05 Respiratory: Negative for cough, shortness of breath, wheezing, 10:05 Abdomen/GI: Positive for abdominal pain, nausea and vomiting, 10:05 All other systems are negative, Vital Signs: 09:45 BP 132 / 102; Pulse 92; Resp 18; Temp 98(O); Pulse Ox 100% on R/A; Weight 77.11 kg; hb Height 5 ft. 6 in. ; Pain 10/10; 13:38 BP 137 / 95; Pulse 91; Resp 16; Pulse Ox 98% ; bp 09:45 Body Mass Index 27.44 (77.11 kg, 167.64 cm) hb 09:45 Pain Scale: Adult hb MDM: 09:49 Patient medically screened. cp 11/11 09:47 Order name: Basic Metabolic Panel; Complete Time: 11:21 cp 11/11 11:21 Interpretation: Normal except: K 3.4. cp 11/11 09:47 Order name: CBC with Diff; Complete Time: 11:21 11/11 09:47 Order name: LFT's; Complete Time: 11:21 11/11 09:47 Order name: Magnesium; Complete Time: 11:21 11/11 09:47 Order name: Troponin HS; Complete Time: 11:21 11/11 09:47 Order name: Lipase; Complete Time: 11:21 11/11 09:48 Order name: SARS RAPID; Complete Time: 11:21 11/11 09:48 Order name: Influenza Screen (a \T\ B); Complete Time: 11:21 11/11 09:47 Order name: XRAY Chest (1 view); Complete Time: 13:29 11/11 13:30 Interpretation: Report review. 11/11 11:22 Order name: CT Abd/Pelvis - IV Contrast Only; Complete Time: 13:29 11/11 09:47 Order name: Cardiac monitoring; Complete Time: 09:56 11/11 09:47 Order name: EKG - Nurse/Tech; Complete Time: 10:24 11/11 09:47 Order name: IV Saline Lock; Complete Time: 10:16 11/11 09:47 Order name: Labs collected and sent; Complete Time: 10:16 11/11 09:47 Order name: O2 Per Protocol; Complete Time: 09:56 11/11 09:47 Order name: O2 Sat Monitoring; Complete Time: 09:56 11/11 10:27 Order name: Labs - recollect needed: recollect labs/ hemolyzed; Complete Time: 10:52 eb Administered Medications: 10:29 Drug: Ondansetron IVP 4 mg IVP once; over 2 minutes Route: IVP; Site: right hand; bp 11:52 Follow up: Response: No adverse reaction bp 10:29 Drug: morphine IVP or IV 4 mg IVP once over 4 mins Route: IVP; Infused Over: 4 mins; bp Site: right hand; 11:52 Follow up: Response: No adverse reaction bp 10:30 Drug: Pantoprazole IVP 40 mg IVP once Route: IVP; Site: right hand; bp 11:52 Follow up: Response: No adverse reaction bp 13:38 Drug: Potassium PO Effervescent Tablet 25 mEq PO once; dissolve in 4 ounces of water or bp juice Route: PO; 14:01 Follow up: Response: No adverse reaction bp Disposition Summary: 11/12/23 13:47 Discharge Ordered Notes: Location: Home cp Problem: new cp Symptoms: have improved cp Condition: Stable cp Diagnosis - Nausea with vomiting, unspecified cp - Epigastric pain cp Followup: cp - With: Private Physician - When: 2 - 3 days - Reason: Worsening of condition Discharge Instructions: - Discharge Summary Sheet cp - Gastritis, Adult cp - Gastroesophageal Reflux Disease, Adult cp - Nausea and Vomiting, Adult cp Forms: - Medication Reconciliation Form cp - Antibiotic Education cp - Prescription Opioid Use cp - Patient Portal Instructions cp - Leadership Thank You Letter cp Prescriptions: - Protonix 40 mg Oral Tablet - take 1 tablet ORAL route once daily; 30 tablet; Refills: 0, Product Selection cp Permitted - Zofran 4 mg Oral Tablet - take 1 tablet ORAL route every 12 hours As needed; 20 tablet; Refills: 0, cp Product Selection Permitted Signatures: Dispatcher [employer] EDMS Abhay Torres PA PA cp Shara Quintana RN RN Renato Goldstein RN RN Yanira Dominguez Corrections: (The following items were deleted from the chart) 11/12 14:00 14:00 The patient presents with abdominal pain in the epigastric area, cp cp
[2023-11-12 14:20] VITALS: TEMP 98
[2023-11-12 14:21] VITALS: BP 137/95; O2SAT 98
--- NOTE | 2023-11-13 10:01 | EKG ---
Test Date: 2023-11-12 Test Time: 10:22:12 Rn Social Work: DEUCE MEASUREMENT RESULTS: Intervals: Rate: 83 [place]: 142 QRSD: 82 QT: 360 QTc: 423 [place]: P: 79 [place]: 142 QRS: 69 T: 64 INTERPRETIVE STATEMENTS: Normal sinus rhythm Normal ECG Compared to ECG 12/14/2019 10:49:07 ST (T wave) deviation no longer present Electronically Signed On 11-13-23 10:00:15 CDT by Jae Marie
== END 2023-11-12 14:01 | disposition home or self-care (01) ==
LOC: ER 09:08
DX: R11.2 Nausea with vomiting, unspecified (principal); R10.13 Epigastric pain
CPT/HCPCS: 36415; 71045; 74177; 80048; 80076; 83690; 83735; 84484; 85025; 87804; 87811; 93005; 96374; 96375; 99284; J2405; J2470; Q9967

== ENCOUNTER 2024-04-18 00:38 | Emergency (ER) | payer SELFPAY ==
--- OUTSIDE RECORDS SUMMARY | 2024-04-18 00:42 | XMS REPORT | Continuity of Care Document ---
Author Name Unknown Address [address] [facility] [place] [address] [facility] thconnect Address [address] [facility] [place] [address] Care Team Providers Care Grain Handler Name Role Phone Rome Montaño Attending Clinician [phone] Arina North DO Attending Clinician [phone] ARINA NORTH Attending Clinician Unavailable Doctor Unassigned, [place] Attending Clinician U navailable Payers Payer Name Policy Type Policy Number Effective Date Expirati on Date Source Problems Condition Name Condition Details Condition Category Status Onset Date Resolution Date Last Treatment Date Treating Clinician Comments Source No known active problems No known active problems Disease [facility] Allergies, Adverse Reactions, Alerts Allergy Name Allergy Type Status Severity Reaction(s) Onset Date Inactive Date Treating Clinician Comments Source Hydromor phone (Bulk) Propensi ty to adverse reaction s Active Hives 2015-03 00:00: 00 [facility] HYDROMOR PHONE (BULK) DRUG Active Hives 2015-03 00:00: 00 [facility] Social History Social Habit Start Date Stop Date Quantity Comments Source Sex Assigned At [facility] Exposure to SARS-CoV-2 (event) Not sure [facility] Smoking Status Start Date Stop Date Source Unknown if ever smoked [facility] Medications Ordered Medication Name Filled Medication [...] Urine
D uration of Therapy: 10 days [facility] iohexol (OMNIPAQUE 350 BULK-150 mL) injection 120 mL 05-06 02:50: 00 05-06 02:50 :00 No 120mL 120 mL, Intravenou s, ONCE, 1 dose, 05/05/20 at 2100, Routine [facility] maalox:diph enhydrAMINE :lidocaine 2 % viscous 1:1:1 ([facility]) oral suspension 15 mL 05-06 02:15: 00 05-06 02:09 :00 No 15mL 15 mL, Oral (Swish & Swallow), ONCE, 1 dose, 05/05/20 at 2015, Routine [facility] famotidine 20 mg in NS 50 ml (PEPCID) 20 mg/50 mL Piggyback 20 mg 05-06 02:15: 00 05-06 02:20 :00 No 20mg 20 mg, IV Piggyback, ONCE, 1 dose, 05/05/20 at 2015, 50 mL [facility] ondansetron (ZOFRAN (PF)) injection 4 mg 05-06 02:00: 00 05-06 01:57 :00 No 4mg 4 mg, Slow IV Push, ONCE, 1 dose, 05/05/20 at 2000, STEPHANE [facility] NaCl 0.9% (NS) bolus infusion 1,000 mL 05-06 02:00: 05-06 04:00 :00 No 1000mL at 999 mL/hr, 1,000 mL, IV Infusion, ONCE, 1 dose, 05/05/20 at 2000, STAT [facility] ondansetron (ZOFRAN ODT) 4 mg disintegrat ing tablet 05-05 00:00: 00 Yes [id number] 4mg Take 1 tablet by mouth every 8 (eight) hours as needed for Nausea and Vomiting (N/V). [facility] cephALEXin (KEFLEX) 500 mg capsule 05-05 00:00: 00 05-16 05:59 :00 No [id number] 500mg Take 1 capsule by mouth 3 (three) times daily for 10 days. [facility] ibuprofen 600 mg tablet 2018-03 00:00: 00 Yes [id number] 600mg Take 1 tablet by mouth every 6 (six) hours as needed for Pain (scale 4-6). [facility] azithromyci n (ZITHROMAX Z-ZUNILDA) 250 mg tablet 2018-03 00:00: 00 Yes [id number] 250mg Take 1 tablet by mouth SEE-INSTRU CTIONS. Take 500 mg day 1, then 250 mg days 2 to 5. [facility] OMEPRAZOLE (PRILOSEC ORAL) 09-03 05:49: 11 Yes Take by mouth. [facility] predniSONE 10 mg tablet 07-19 00:00: 00 Yes One tablet daily [facility] proMETHazin e 25 mg tablet 07-19 00:00: 00 Yes 25mg Take 1 tablet by mouth every 6 (six) hours as needed for N/V unresponsi ve to Ondansetro n. [facility] ALPRAZolam (XANAX) 0.25 mg tablet 07-19 00:00: 00 Yes .25mg Take 1 tablet by mouth 3 (three) times daily. [facility] proMETHazin e (PHENERGAN) 25 mg tablet 2015-03 00:00: 00 Yes 25mg Take 1 tablet by mouth every 6 (six) hours as needed for Nausea and Vomiting (N/V). [facility] Vital Signs Vital Name Observation Time Observation Value Comments S ruben Systolic blood pressure 2020-05-06 04:00:00 114 mm[Hg] [facility] Diastolic blood pressure 2020-05-06 04:00:00 67 mm[Hg] [facility] Heart rate 2020-05-06 04:00:00 84 /min [facility] Respiratory rate 2020-05-06 04:00:00 17 /min [facility] Oxygen saturation in Arterial blood by Pulse oximetry 2020-05-06 04:00:00 95 /min [facility] Body temperature 2020-05-05 18:51:00 36.94 Trudy [facility] Body weight 2020-05-05 18:51:00 68.04 kg [facility] BMI 2020-05-05 18:51:00 24.21 kg/m2 [facility] Systolic blood pressure 2020-05-06 04:00:00 114 mm[Hg] [facility] Diastolic blood pressure 2020-05-06 04:00:00 67 mm[Hg] [facility] Heart rate 2020-05-06 04:00:00 84 /min [facility] Respiratory rate 2020-05-06 04:00:00 17 /min [facility] Oxygen saturation in Arterial blood by Pulse oximetry 2020-05-06 04:00:00 95 /min [facility] Body temperature 2020-05-05 18:51:00 36.94 Trudy [facility] Body weight 2020-05-05 18:51:00 68.04 kg [facility] BMI 2020-05-05 18:51:00 24.21 kg/m2 [facility] Systolic blood pressure 2019-08-06 14:34:00 149 mm[Hg] [facility] Diastolic blood pressure 2019-08-06 14:34:00 94 mm[Hg] [facility] Heart rate 2019-08-06 14:34:00 104 /min [facility] Body temperature 2019-08-06 14:34:00 36.83 Trudy [facility] Respiratory rate 2019-08-06 14:34:00 18 /min [facility] Body height 2019-08-06 14:34:00 167.6 cm [facility] Body weight 2019-08-06 14:34:00 81.647 kg [facility] BMI 2019-08-06 14:34:00 29.05 kg/m2 [facility] Oxygen saturation in Arterial blood by Pulse oximetry 2019-08-06 14:34:00 98 /min [facility] Systolic blood pressure 2019-08-06 14:34:00 149 mm[Hg] [facility] Diastolic blood pressure 2019-08-06 14:34:00 94 mm[Hg] [facility] Heart rate 2019-08-06 14:34:00 104 /min [facility] Body temperature 2019-08-06 14:34:00 36.83 Trudy [facility] Respiratory rate 2019-08-06 14:34:00 18 /min [facility] Body height 2019-08-06 14:34:00 167.6 cm [facility] Body weight 2019-08-06 14:34:00 81.647 kg [facility] BMI 2019-08-06 14:34:00 29.05 kg/m2 [facility] Oxygen saturation in Arterial blood by Pulse oximetry 2019-08-06 14:34:00 98 /min [facility] Procedures Procedure Date / Time Performed Performing Clinicia n Source CT ABDOMEN PELVIS W CONTRAST 2020-05-06 02:57:57 Rome Crowley [facility] CBC WITH DIFF 2020-05-06 01:05:00 Rome Crowley [facility] LIPASE 2020-05-06 01:04:00 Rome Crowley [facility] MAGNESIUM 2020-05-06 01:04:00 [facility] TROPONIN I 2020-05-06 01:04:00 [facility] COMP. METABOLIC PANEL ([id number]) 2020-05-06 01:04:00 Rome Crowley [facility] URINALYSIS 2020-05-06 01:04:00 Keo Rome Weinstein [facility] CONSENT/REFUSAL FOR DIAGNOSIS AND TREATMENT 2019-08-06 14:27:44 Doctor Unassigned, [place] [facility] Encounters Start Date/Time End Date/Time Encounter Type Admission Type Attending [facility] Facility Care Department Encounter ID Source 2020-05-05 12:52:00 2020-05-05 22:24:00 Emergency Rome Crowley [facility] [id number] 2020-05-05 12:52:00 2020-05-05 22:24:00 Emergency Rome Crowley [facility] [id number] [id number] [facility] 2020-05-05 12:52:00 2020-05-05 12:52:00 [facility] [id number] [facility] 2019-08-06 09:32:38 2019-08-06 10:13:00 Emergency [facility] [id number] 2019-08-06 09:32:38 2019-08-06 10:13:00 Emergency [facility] [id number] [facility] 2019-08-06 09:32:38 2019-08-06 09:32:38 Emergency X [facility] ERT [id number] [facility] 2019-08-06 00:00:00 2019-08-06 00:00:00 Orders Only Doctor Unassigned, [place] [facility] [id number] [id number] [id number] 2019-08-06 00:00:00 2019-08-06 00:00:00 Orders Only Doctor Unassigned, [place] [facility] [id number] [id number] [id number] [id number] [facility] Results Test Description Test Time Test Comments [...] and agree withthe above report. [id number] 01:43:00* Test Item Value Reference Range Interpretation Comme nts TROPONIN I (test code = 2442164671) 0.034 ng/mL See_Comment [Automated message] The system [...] biotin. ? Lab Interpretation (test code = 83012-0) [facility]:00* Test Item Value Reference Range Interpretation Comme nts MAGNESIUM (test code = 7615828754) 2.1 mg/dL 1.7-2.4 Lab Interpretation (test cod e = 32930-5) [facility] ([id number])2020-05-06 01:32:00* Test Item Value Reference Range Interpretation Comme nts NA (test code = 6977376154) 136 mmol/L 135-145 K (test code = 1763125609) 4.5 mmol/L 3.5-5 CL (test code = 6884436202) 96 mmol/L 98-108 L CO2 TOTAL (test code = 1702145790) 28 mmol/L 23-31 AGAP (test code = 1622662096) 2-16 BUN (test code = 3902605440) 15 mg/dL 7-23 GLUCOSE (test code = 2947467187) 113 mg/dL 70-110 H CREATININE (test code = 9435310463) 0.67 mg/dL 0.5-1.04 TOTAL BILI (test code = 4349784244) 1.4 mg/dL 0.1-1.1 H CALCIUM (test code = 4546679807) 9.7 mg/dL 8.6-10.6 T PROTEIN (test code = 7039983519) 9.7 g/dL 6.3-8.2 H ALBUMIN (test code = 6363172377) 5.3 g/dL 3.5-5 H ALK PHOS (test code = 9494906398) 82 U/L 34-122 ALTv (test code = 1742-6) 48 U/L 5-35 H AST(SGOT) (test code = 9486500611) 59 U/L 13-40 H eGFR Calculation (Non-) (test code = 3078090102) mL/min/1.73m2 eGFR Calculation () (test code = 0172753912) mL/min/1.73m2 KARYN (test code = KARYN) Association [...] imaging tests). Lab Interpretation (test code = 79729-3) [facility]:32[facility]00* Test Item Value Reference Range Interpretation Comme nts LIPASE (test code = 8190889073) 83 U/L 0-220 Lab Interpretation (test cod e = 85066-4) Normal [facility] WITH [id number] 01:21:00* Test Item Value Reference Range Interpretation [...] 34.3 g/dL 31.6-35.1 RDW-SD (test code = 51955-8) 42.6 fL 39-49.9 RDW-CV (test code = 788-0) 13.0 % 12-15.5 PLT (test code = 777-3) See_Comment [Automated message] The system which generated this result transmitted reference range: 166 - 358 10*3/?L. The reference range was not used to interpret this result as normal/abnormal. MPV (test code = 15957-4) 10.1 fL 9.5-12.9 NRBC/100 WBC (test code = 8864908781) See_Comment [Automated message] The system which generated this result transmitted reference range: 0.0 - 10.0 /100 WBCs. The reference range was not used to interpret this result as normal/abnormal. NRBC x10^3 (test code = 8280397398) <0.01 See_Comment [Automated message] The system which generated this result transmitted reference range: 10*3/?L. The reference range was not used to interpret this result as normal/abnormal. GRAN MAT (NEUT) % (test code = 770-8) 77.3 % IMM GRAN % (test code = 5697809327) 0.40 % LYMPH % (test code = 736-9) 16.3 % MONO % (test code = 5905-5) 5.6 % EOS % (test code = 713-8) 0.0 % BASO % (test code = 706-2) 0.4 % GRAN MAT x10^3(ANC) (test code = 2358441428) 12.59 10*3/uL 1.88-7.09 H IMM GRAN x10^3 (test code = 6648876339) 0.07 10*3/uL 0-0.06 H LYMPH x10^3 (test code = 731-0) 2.66 10*3/uL 1.32-3.29 MONO x10^3 (test code = 742-7) 0.91 10*3/uL 0.33-0.92 EOS x10^3 (test code = 711-2) <0.03 0.03-0.39 L BASO x10^3 (test code = 704-7) 0.06 10*3/uL 0.01-0.07 Lab Interpretation (test code = 33015-5) Abnormal [facility]"
[2024-04-18] MEDS ORDERED: LORazepam 2 MG/ML VIAL ONE (01:07)
[2024-04-18] MEDS ORDERED: NA CHLORIDE 0.9% 1,000 ML ONE (01:07)
[2024-04-18 01:35] LABS: Absolute Basophils 0.2 K/uL (0-0.5); Absolute Eosinophils 0.3 K/uL (0-0.5); Absolute Lymphocytes (CBC) 2.8 K/uL (0.7-4.9); Absolute Monocytes 0.8 K/uL (0.1-1.3); Absolute Neutrophil 7.9 K/uL (1.8-8.0); Basophils % 1.4 % (0-1.3); Eosinophils % 2.5 % (0-4.4); Hemoglobin 14.5 g/dL (12.0-15.0); Lymphocytes % 23.6 % (15.3-44.8); MCH 31.2 pg (27.0-35.0); MCHC 34.4 g/dL (32.0-36.0); MCV 90.7 fL (80-100); Monocytes % 6.7 % (3.3-12.3); Neutrophils % 65.8 % (41.7-73.7); Platelets 215 thou/uL (152-406); RBC Red Blood Cell Count 4.63 M/uL (3.86-4.86); Red Cell Distribution Width 13.2 % (12.1-15.2)
[2024-04-18 01:46] LABS: ALT/SGPT 23 U/L (13-56); AST/SGOT 25 U/L (15-37); Albumin 3.4 g/dL (3.4-5.0); Albumin/Globulin Ratio 0.7 (1.1-1.8); Alkaline Phosphatase 61 U/L (45-117); Anion Gap 11.2 mEq/L (5.0-15.0); BUN Blood Urea Nitrogen 16 mg/dL (7-18); Bicarbonate 25 mEq/L (21-32); Bilirubin Total 0.6 mg/dL (0.2-1.0); Globulin 4.8 g/dL (2.3-3.5); Glomerular Filtration Rate 78 ml/min (=/>90); Glucose Level 101 mg/dL (74-106); Potassium 3.2 mEq/L (3.5-5.1); Protein, Total 8.2 g/dL (6.4-8.2); Sodium Level 137 mEq/L (136-145)
[2024-04-18 01:49] LABS: Troponin High Sensitivity < 3.0 pg/mL (<58.9)
[2024-04-18] MEDS ORDERED: POTASSIUM 25 MEQ EFFERV TAB ONE (02:52)
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
--- NOTE | 2024-04-18 05:56 | RAD REPORT ---
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 COMPARISON: XR Knee left 08/06/2018. FINDINGS: 3 X-ray views of the left knee (frontal, lateral and oblique projections) were performed. Bones: No areas of acute bony injuries were demonstrated. Soft tissues: No significant soft tissue swelling. Joints: There is no joint effusion. Minimal degenerative changes within the intercondylar eminence lateral compartment of the left knee and patellofemoral articulation corresponding to mild osteoarthritis Others: There are no gross intraosseous lesions. No periosteal reaction were seen. IMPRESSION: No acute bony injuries were demonstrated. Mild osteoarthritis. Electronically signed by: Rebel Diez MD 04/18/2024 02:11 AM [employer] Due to temporary technical issues with the PACS/[employer] reporting system, reports are being bianca d by the in-house radiologist without review as a courtesy to ensure prompt reporting the interpreting radiologist is fully responsible for the content of the report. Transcribed Date/Time: 04/18/2024 5:56 AM
[2024-04-18 14:24] VITALS: TEMP 98.4
[2024-04-18 14:33] VITALS: BP 117/87; O2SAT 94
== END 2024-04-18 03:31 | disposition home or self-care (01) ==
LOC: ER 00:38
DX: F41.1 Generalized anxiety disorder (principal); Y04.2XXA Assault by strike against or bumped into by another person, initial encounter; E87.6 Hypokalemia; J44.9 Chronic obstructive pulmonary disease, unspecified
CPT/HCPCS: 36415; 70450; 71250; 72125; 74176; 80053; 84484; 85025; 93005; 96361; 96374; 99285; J7030

== ENCOUNTER 2024-06-13 17:20 | Emergency (ER) | payer SELFPAY ==
--- OUTSIDE RECORDS SUMMARY | 2024-06-13 17:22 | XMS REPORT | Continuity of Care Document ---
Author Name Unknown Address [address] [place] [address] Organization [facility] Address [address] [place] [address] Care Team Providers Care Staffing Clerk Name Role Phone Rome Montaño Attending Clinician [phone] Ebenezer North DO Attending Clinician [phone] EBENEZER NORTH Attending Clinician Unavailable Doctor Unassigned, Mettler Attending Clinician U navailable Payers Payer Name Policy Type Policy Number Effective Date Expirati on Date Source Problems Condition Name Condition Details Condition Category Status Onset Date Resolution Date Last Treatment Date Treating Clinician Comments Source No known active problems No known active problems Disease [facility] Allergies, Adverse Reactions, Alerts Allergy Name Allergy Type Status Severity Reaction(s) Onset Date Inactive Date Treating Clinician Comments Source Hydromor phone (Bulk) Propensi ty to adverse reaction s Active Hives 2015-03 00:00: 00 [facility] HYDROMOR PHONE (BULK) DRUG Active Hives 2015-03 00:00: 00 [facility] Social History Social Habit Start Date Stop Date Quantity Comments Source Sex Assigned At [facility] Exposure to SARS-CoV-2 (event) Not sure [facility] Smoking Status Start Date Stop Date Source Unknown if ever smoked [facility] Medications Ordered Medication Name Filled Medication Name [...] Urine
D uration of Therapy: 10 days [facility] iohexol (OMNIPAQUE 350 BULK-150 mL) injection 120 mL 05-06 02:50: 00 05-06 02:50 :00 No 120mL 120 mL, Intravenou s, ONCE, 1 dose, 05/05/20 at 2100, Routine [facility] maalox:diph enhydrAMINE :lidocaine 2 % viscous 1:1:1 (FIRST-MOUT HWASH BLM) oral suspension 15 mL 05-06 02:15: 00 05-06 02:09 :00 No 15mL 15 mL, Oral (Swish & Swallow), ONCE, 1 dose, 05/05/20 at 2015, Routine [facility] famotidine 20 mg in NS 50 ml (PEPCID) 20 mg/50 mL Piggyback 20 mg 05-06 02:15: 00 05-06 02:20 :00 No 20mg 20 mg, IV Piggyback, ONCE, 1 dose, 05/05/20 at 2015, 50 mL [facility] ondansetron (ZOFRAN (PF)) injection 4 mg 05-06 02:00: 00 05-06 01:57 :00 No 4mg 4 mg, Slow IV Push, ONCE, 1 dose, 05/05/20 at 2000, STEPHANE [facility] NaCl 0.9% (NS) bolus infusion 1,000 mL 05-06 02:00: 05-06 04:00 :00 No 1000mL at 999 mL/hr, 1,000 mL, IV Infusion, ONCE, 1 dose, 05/05/20 at 2000, STAT [facility] ondansetron (ZOFRAN ODT) 4 mg disintegrat ing tablet 05-05 00:00: 00 Yes [id number] 4mg Take 1 tablet by mouth every 8 (eight) hours as needed for Nausea and Vomiting (N/V). [facility] cephALEXin (KEFLEX) 500 mg capsule 05-05 00:00: 00 05-16 05:59 :00 No [id number] 500mg Take 1 capsule by mouth 3 (three) times daily for 10 days. [facility] ibuprofen 600 mg tablet 2018-03 00:00: 00 Yes [id number] 600mg Take 1 tablet by mouth every 6 (six) hours as needed for Pain (scale 4-6). [facility] azithromyci n (ZITHROMAX Z-ZUNILDA) 250 mg tablet 2018-03 00:00: 00 Yes [id number] 250mg Take 1 tablet by mouth SEE-INSTRU CTIONS. Take 500 mg day 1, then 250 mg days 2 to 5. [facility] OMEPRAZOLE (PRILOSEC ORAL) 09-03 05:49: 11 Yes Take by mouth. [facility] predniSONE 10 mg tablet 07-19 00:00: 00 Yes One tablet daily [facility] proMETHazin e 25 mg tablet 07-19 00:00: 00 Yes 25mg Take 1 tablet by mouth every 6 (six) hours as needed for N/V unresponsi ve to Ondansetro n. [facility] ALPRAZolam (XANAX) 0.25 mg tablet 07-19 00:00: 00 Yes .25mg Take 1 tablet by mouth 3 (three) times daily. [facility] proMETHazin e (PHENERGAN) 25 mg tablet 2015-03 00:00: 00 Yes 25mg Take 1 tablet by mouth every 6 (six) hours as needed for Nausea and Vomiting (N/V). [facility] Vital Signs Vital Name Observation Time Observation Value Comments S ourgricelda Systolic blood pressure 2020-05-06 04:00:00 114 mm[Hg] [facility] Diastolic blood pressure 2020-05-06 04:00:00 67 mm[Hg] [facility] Heart rate 2020-05-06 04:00:00 84 /min [facility] Respiratory rate 2020-05-06 04:00:00 17 /min [facility] Oxygen saturation in Arterial blood by Pulse oximetry 2020-05-06 04:00:00 95 /min [facility] Body temperature 2020-05-05 18:51:00 36.94 Trudy [facility] Body weight 2020-05-05 18:51:00 68.04 kg [facility] BMI 2020-05-05 18:51:00 24.21 kg/m2 [facility] Systolic blood pressure 2020-05-06 04:00:00 114 mm[Hg] [facility] Diastolic blood pressure 2020-05-06 04:00:00 67 mm[Hg] [facility] Heart rate 2020-05-06 04:00:00 84 /min [facility] Respiratory rate 2020-05-06 04:00:00 17 /min [facility] Oxygen saturation in Arterial blood by Pulse oximetry 2020-05-06 04:00:00 95 /min [facility] Body temperature 2020-05-05 18:51:00 36.94 Trudy [facility] Body weight 2020-05-05 18:51:00 68.04 kg [facility] BMI 2020-05-05 18:51:00 24.21 kg/m2 [facility] Systolic blood pressure 2019-08-06 14:34:00 149 mm[Hg] [facility] Diastolic blood pressure 2019-08-06 14:34:00 94 mm[Hg] [facility] Heart rate 2019-08-06 14:34:00 104 /min [facility] Body temperature 2019-08-06 14:34:00 36.83 Trudy [facility] Respiratory rate 2019-08-06 14:34:00 18 /min [facility] Body height 2019-08-06 14:34:00 167.6 cm [facility] Body weight 2019-08-06 14:34:00 81.647 kg [facility] BMI 2019-08-06 14:34:00 29.05 kg/m2 [facility] Oxygen saturation in Arterial blood by Pulse oximetry 2019-08-06 14:34:00 98 /min [facility] Systolic blood pressure 2019-08-06 14:34:00 149 mm[Hg] [facility] Diastolic blood pressure 2019-08-06 14:34:00 94 mm[Hg] [facility] Heart rate 2019-08-06 14:34:00 104 /min [facility] Body temperature 2019-08-06 14:34:00 36.83 Trudy [facility] Respiratory rate 2019-08-06 14:34:00 18 /min [facility] Body height 2019-08-06 14:34:00 167.6 cm [facility] Body weight 2019-08-06 14:34:00 81.647 kg [facility] BMI 2019-08-06 14:34:00 29.05 kg/m2 [facility] Oxygen saturation in Arterial blood by Pulse oximetry 2019-08-06 14:34:00 98 /min [facility] Procedures Procedure Date / Time Performed Performing Clinicia n Source CT ABDOMEN PELVIS W CONTRAST 2020-05-06 02:57:57 Rome Crowley [facility] CBC WITH DIFF 2020-05-06 01:05:00 Rome Crowley [facility] LIPASE 2020-05-06 01:04:00 [facility] MAGNESIUM 2020-05-06 01:04:00 [facility] TROPONIN I 2020-05-06 01:04:00 [facility] COMP. METABOLIC PANEL ([id number]) 2020-05-06 01:04:00 Rome Crowley [facility] URINALYSIS 2020-05-06 01:04:00 Rome Crowley [facility] CONSENT/REFUSAL FOR DIAGNOSIS AND TREATMENT 2019-08-06 14:27:44 Doctor Unassigned, Mettler [facility] Encounters Start Date/Time End Date/Time Encounter Type Admission Type Attending [facility] Care Facility Care Department Encounter ID Source 2020-05-05 12:52:00 2020-05-05 22:24:00 Emergency Rome Crowley [facility] [id number] 2020-05-05 12:52:00 2020-05-05 22:24:00 Emergency Rome Crowley [facility] [id number] [facility] 2020-05-05 12:52:00 2020-05-05 12:52:00 Emergency [facility] [id number] [facility] 2019-08-06 09:32:38 2019-08-06 10:13:00 Emergency Ebenezer North [facility] [id number] 2019-08-06 09:32:38 2019-08-06 10:13:00 Emergency Singer Ebenezer [facility] [id number] [facility] 2019-08-06 09:32:38 2019-08-06 09:32:38 Emergency X EBENEZER NORTH [facility] ERT [id number] [facility] 2019-08-06 00:00:00 2019-08-06 00:00:00 Orders Only Doctor Unassigned, Mettler [facility] [id number] [id number] 2019-08-06 00:00:00 2019-08-06 00:00:00 Orders Only Doctor Unassigned, Mettler [facility] [id number] [id number] [facility] Results Test Description Test Time Test Comments [...] this study and agree withthe above report. [id number]:43:00* Test Item Value Reference Range Interpretation Comme nts TROPONIN I (test code = 5641869482) 0.034 ng/mL See_Comment [Automated message] The system [...] biotin. ? Lab Interpretation (test code = 76309-7) Normal [facility]2021-[facility]-17 01:33:00* Test Item Value Reference Range Interpretation Comme nts MAGNESIUM (test code = 9797324149) 2.1 mg/dL 1.7-2.4 Lab Interpretation (test cod e = 98543-6) [facility] (80699)2020-05-06 01:32:00* Test Item Value Reference Range Interpretation Comme nts NA (test code = 8949250303) 136 mmol/L 135-145 K (test code = 5906509535) 4.5 mmol/L 3.5-5 CL (test code = 5556364472) 96 mmol/L 98-108 L CO2 TOTAL (test code = 3429689053) 28 mmol/L 23-31 AGAP (test code = 9242720843) 2-16 BUN (test code = 2349518536) 15 mg/dL 7-23 GLUCOSE (test code = 4935853000) 113 mg/dL 70-110 H CREATININE (test code = 9994203560) 0.67 mg/dL 0.5-1.04 TOTAL BILI (test code = 1787777685) 1.4 mg/dL 0.1-1.1 H CALCIUM (test code = 2061011301) 9.7 mg/dL 8.6-10.6 T PROTEIN (test code = 8170230714) 9.7 g/dL 6.3-8.2 H ALBUMIN (test code = 4068774628) 5.3 g/dL 3.5-5 H ALK PHOS (test code = 0472707516) 82 U/L 34-122 ALTv (test code = 1742-6) 48 U/L 5-35 H AST(SGOT) (test code = 8732781824) 59 U/L 13-40 H eGFR Calculation (Non-) (test code = 4491154156) mL/min/1.73m2 eGFR Calculation () (test code = 3365166278) mL/min/1.73m2 KARYN (test code = KARYN) Association [...] imaging tests). Lab Interpretation (test code = 14964-1) [facility]normal [facility] 01:32:00* Test Item Value Reference Range Interpretation Comme nts LIPASE (test code = 7500555091) 83 U/L 0-220 Lab Interpretation (test cod e = 96145-7) Normal [facility] WITH [id number] 01:21:00* Test Item Value Reference Range Interpretation [...] 34.3 g/dL 31.6-35.1 RDW-SD (test code = 06143-2) 42.6 fL 39-49.9 RDW-CV (test code = 788-0) 13.0 % 12-15.5 PLT (test code = 777-3) See_Comment [Automated message] The system which generated this result transmitted reference range: 166 - 358 10*3/?L. The reference range was not used to interpret this result as normal/abnormal. MPV (test code = 75603-2) 10.1 fL 9.5-12.9 NRBC/100 WBC (test code = 7534418991) See_Comment [Automated message] The system which generated this result transmitted reference range: 0.0 - 10.0 /100 WBCs. The reference range was not used to interpret this result as normal/abnormal. NRBC x10^3 (test code = 2596666027) <0.01 See_Comment [Automated message] The system which generated this result transmitted reference range: 10*3/?L. The reference range was not used to interpret this result as normal/abnormal. GRAN MAT (NEUT) % (test code = 770-8) 77.3 % IMM GRAN % (test code = 5886573133) 0.40 % LYMPH % (test code = 736-9) 16.3 % MONO % (test code = 5905-5) 5.6 % EOS % (test code = 713-8) 0.0 % BASO % (test code = 706-2) 0.4 % GRAN MAT x10^3(ANC) (test code = 5600990133) 12.59 10*3/uL 1.88-7.09 H IMM GRAN x10^3 (test code = 5365709516) 0.07 10*3/uL 0-0.06 H LYMPH x10^3 (test code = 731-0) 2.66 10*3/uL 1.32-3.29 MONO x10^3 (test code = 742-7) 0.91 10*3/uL 0.33-0.92 EOS x10^3 (test code = 711-2) <0.03 0.03-0.39 L BASO x10^3 (test code = 704-7) 0.06 10*3/uL 0.01-0.07 Lab Interpretation (test code = 32207-2) Abnormal [facility]"
--- NOTE | 2024-06-13 18:00 | EDPHYS ---
Physician Documentation [facility] Name: Teagan Bailey Age: 58 yrs Sex: Female : 1965 Arrival Date: 06/13/2024 Time: 17:20 Bed DIS8 Private MD: ED Physician Jori Desai HPI: 06/13 17:56 This 58 yrs old Female presents to ER via Ambulatory with complaints of Hand Injury - rn right. 17:56 The patient or guardian reports injury, pain. The complaints affect the MCP of right rn little finger. Onset: The symptoms/episode began/occurred 5 day(s) ago. Patient reports accidentally struck back of right hand and corner of object 5 days ago. Initially did not hurt or was not worried about it but now swelling and hurting. No other injury.. Historical: - Allergies: 17:26 Dilaudid; ll1 - PMHx: 17:26 Anxiety; Asthma; Bronchitis; COPD; Diabetes - NIDDM; Seizures; skin ca; ll1 - PSHx: 17:26 Total abdominal hysterectomy; ll1 - Immunization history:: Adult Immunizations up to date. - Infectious Disease History:: Denies. - Social history:: Smoking status: Patient reports the use of cigarette tobacco products, smokes one pack cigarettes per day. - Family history:: not pertinent. - Hospitalizations: : No recent hospitalization is reported. ROS: 17:56 Constitutional: Negative for fever, chills, and weight loss, MS/Extremity: Positive for rn right hand injury and pain Neuro: Negative for weakness or numbness Exam: 17:56 Constitutional: This is a well developed, well nourished patient who is awake, alert, rn and in no acute distress. MS/ Extremity: Pulses equal, no cyanosis. Neurovascular intact. Moderate swelling to right fifth metacarpal with tenderness. No scissoring or rotational deformity noted Vital Signs: 17:26 BP 141 / 100; Pulse 97; Resp 17; Temp 97.8; Pulse Ox 98% ; Pain 6/10; ll1 18:18 BP 136 / 90; Pulse 90; Resp 20; Temp 98; Pulse Ox 100% on R/A; kj2 17:26 Pain Scale: Adult ll1 MDM: 17:28 Medical Screening Exam initiated rn 17:56 Differential diagnosis: closed fracture. Data reviewed: vital signs, nurses notes, rn radiologic studies, plain films, and as a result, I will discharge patient. Counseling: I had a detailed discussion with the patient and/or guardian regarding the historical points, exam findings, and any diagnostic results supporting the discharge/admit diagnosis, radiology results, the need for outpatient follow up, to return to the emergency department if symptoms worsen or persist or if there are any questions or concerns that arise at home. Special discussion: I discussed with the patient/guardian in detail that at this point there is no indication for admission to the hospital. It is understood, however, that if the symptoms persist or worsen the patient needs to return immediately for re-evaluation. Based on the history and exam findings, there is no indication for further emergent testing or inpatient evaluation. I discussed with the patient/guardian the need to see the hand specialist for further evaluation of the symptoms. ED course: Patient with fracture of the fifth metacarpal, slight angulation noted on x-ray, no rotational deformity noted clinically. Fracture is already for 5 days old and patient with essentially full range of motion. Will place in splint but will not attempt to reduce this 5-day-old fracture. Told patient will likely need surgery and needs hand follow-up or risks permanent problem with right hand. 06/13 17:29 Order name: XRAY Hand RIGHT 3 View rn 06/13 17:54 Order name: Splint - Ulnar Gutter; Complete Time: 18:28 rn Administered Medications: No medications were administered Disposition Summary: 06/13/24 17:59 Discharge Ordered Notes: Location: Home rn Problem: new rn Symptoms: have improved rn Condition: Stable rn Diagnosis - Displaced fracture of neck of fifth metacarpal bone, right hand rn Followup: rn - With: Private Physician - When: 5 - 6 days - Reason: Recheck today's complaints, Re-evaluation by your physician Discharge Instructions: - Discharge Summary Sheet rn - Boxer's Fracture rn - Cast or Splint Care, Adult rn Forms: - Medication Reconciliation Form rn - Antibiotic ornamenter hand - Prescription Opioid Use rn - Patient Portal Instructions rn - Leadership Thank You Letter rn Signatures: Dispatcher [employer] EDMS Jori Desai MD MD rn Lewis, Lynsay, RN RN ll1 Lucía Sanchez RN RN kj2
--- NOTE | 2024-06-13 18:00 | ER ---
Nurse's Notes [facility] Name: Teagan Bailey Age: 58 yrs Sex: Female : 1965 Arrival Date: 06/13/2024 Time: 17:20 Bed DIS8 Private MD: Diagnosis: Displaced fracture of neck of fifth metacarpal bone, right hand Presentation: 06/13 17:26 Chief complaint: Patient states: R hand pain, swelling for 4 days. Hit on hard surface ll1 trying to catch her while falling. Coronavirus screen: Client denies travel out of the [place] in the last 14 days. At this time, the client does not indicate any symptoms associated with coronavirus-19. Ebola Screen: Patient denies travel to an Ebola-affected area in the 21 days before illness onset. Initial Sepsis Screen: Does the patient meet any 2 criteria? No. Patient's initial sepsis screen is negative. Does the patient have a suspected source of infection? No. Patient's initial sepsis screen is negative. Risk Assessment: Do you want to hurt yourself or someone else? Patient reports no desire to harm self or others. Onset of symptoms was June 10, 2024. 17:26 Method Of Arrival: Ambulatory ll1 17:26 Acuity: DARRELL 4 ll1 Triage Assessment: 17:32 General: Appears uncomfortable, Behavior is calm, cooperative, appropriate for age. ll1 Pain: Complains of pain in right hand. Musculoskeletal: Reports pain in right hand. Injury Description: Deformity. Historical: - Allergies: 17:26 Dilaudid; ll1 - PMHx: 17:26 Anxiety; Asthma; Bronchitis; COPD; Diabetes - NIDDM; Seizures; skin ca; ll1 - PSHx: 17:26 Total abdominal hysterectomy; ll1 - Immunization history:: Adult Immunizations up to date. - Infectious Disease History:: Denies. - Social history:: Smoking status: Patient reports the use of cigarette tobacco products, smokes one pack cigarettes per day. - Family history:: not pertinent. - Hospitalizations: : No recent hospitalization is reported. Screenin:30 [facility] ED Fall Risk Assessment (Adult) History of falling in the last 3 months, kj2 including since admission No falls in past 3 months (0 pts) Confusion or Disorientation No (0 pts) Intoxicated or Sedated No (0 pts) Impaired Gait No (0 pts) Mobility Assist Device Used No (0 pt) Altered Elimination No (0 pt) Score/Fall Risk Level 0 - 2 = Low Risk Maintained a safe environment, Hourly rounding (assess needs \T\ fall precautionary measures) done. Abuse screen: Denies threats or abuse. Denies injuries from another. Nutritional screening: No deficits noted. Tuberculosis screening: No symptoms or risk factors identified. Assessment: 17:30 General: Appears in no apparent distress. Behavior is cooperative. Pain: Complains of kj2 pain in MCP of right little finger and right hand Pain currently is 5 out of 10 on a pain scale. Neuro: Level of Consciousness is awake, alert, obeys commands, Oriented to person, place, time, situation. Cardiovascular: Patient's skin is warm and dry. Respiratory: Airway is patent Respiratory effort is unlabored. GI: No signs and/or symptoms were reported involving the gastrointestinal system. : No signs and/or symptoms were reported regarding the genitourinary system. Vital Signs: 17:26 BP 141 / 100; Pulse 97; Resp 17; Temp 97.8; Pulse Ox 98% ; Pain 6/10; ll1 18:18 BP 136 / 90; Pulse 90; Resp 20; Temp 98; Pulse Ox 100% on R/A; kj2 17:26 Pain Scale: Adult ll1 ED Course: 17:21 Patient arrived in ED. im 17:28 Triage completed. ll1 17:28 Jori Desai MD is Attending Physician. rn 17:28 Arm band placed on. ll1 17:30 Patient has correct armband on for positive identification. Call light in reach. Adult kj2 w/ patient. Provided Education on: call light. 17:30 No provider procedures requiring assistance completed. kj2 17:56 XRAY Hand RIGHT 3 View In Process Unspecified. EDMS 18:17 Lucía Sanchez, HARRY is Primary Nurse. kj2 18:21 Patient did not have IV access during this emergency room visit. kj2 Administered Medications: No medications were administered Medication: 18:19 VIS not applicable for this client. kj2 Outcome: 17:59 Discharge ordered by . rn 18:21 Discharged to home ambulatory, kj2 18:21 Condition: stable 18:21 Discharge instructions given to patient, Instructed on discharge instructions, Demonstrated understanding of instructions, 18:57 Patient left the ED. kj2 Signatures: Dispatcher [employer] Jori Bills MD MD rn Lewis, Lynsay, RN RN ll1 Desiree aCrranza Krystal, RN RN kj2
--- NOTE | 2024-06-13 18:29 | RAD REPORT ---
Exam:Hand Right 3 View HISTORY: Right hand pain FINDINGS: Oblique moderately displaced fracture distal diaphysis fifth metacarpal. No dislocation seen
[2024-06-13 19:04] VITALS: BP 136/90; TEMP 98; O2SAT 100
== END 2024-06-13 18:57 | disposition home or self-care (01) ==
LOC: ER 17:20
PROC: 2W3JX1Z Immobilization of Right Finger using Splint (ICD-10-PCS; principal; 2024-06-13)
DX: S62.336A Displaced fracture of neck of fifth metacarpal bone, right hand, initial encounter for closed fracture (principal)
CPT/HCPCS: 99283